=== PATIENT | female | born 1950 | race Two or more races ===

== ENCOUNTER 2020-03-14 08:56 | Outpatient (REF) | payer MEDICARE, MEDICAID, SELFPAY ==
--- NOTE | 2020-03-14 09:00 | US_ITS ---
EXAMINATION: Noninvasive assessment of the arteries of both lower extremities to include a PVR exam limited (1-2 levels) and ROSALIO, bilateral. Interventional Radiologist: Star White M.D., F.S.I.R., F.A.C.R. CLINICAL INFORMATION: This is a 69-year-old female with peripheral vascular disease. COMPARISON: Comparison is made to a previous study dated which was normal. TECHNIQUE: The ankle/brachial indices of the distal posterior tibial and the dorsalis pedis arteries were obtained of the lower extremity arterial system bilaterally; along with pressures and pulse volume recordings at the ankle FINDINGS AT REST: RIGHT LE. THE RIGHT ANKLE-BRACHIAL INDEX IS: 1.11 (higher of the DP/PT) >0.97-1.25 = normal - no significant arterial disease 0.75-0.96 = mild peripheral arterial disease 0.50-0.74 = moderate peripheral arterial disease <0.50 = severe peripheral arterial disease <0.30 = critical arterial disease 2. SEGMENTAL PRESSURES: Ankle: PT 147 DP 144 3. PVR WAVEFORMS: Ankle: Normal LEFT LE. THE LEFT ANKLE-BRACHIAL INDEX IS: 1.02 (higher of the DP/PT) >0.97-1.25 = normal - no significant arterial disease 0.75-0.96 = mild peripheral arterial disease 0.50-0.74 = moderate peripheral arterial disease <0.50 = severe peripheral arterial disease <0.30 = critical arterial disease 2. SEGMENTAL PRESSURES: Ankle: PT 136 DP 135 3. PVR WAVEFORMS: Ankle: Normal US/US ROSALIO complete IMPRESSION: 1. Normal bilateral resting peripheral arterial testing without evidence of hemodynamically significant stenosis.
== END 2020-03-14 08:57 | disposition home or self-care (01) ==
LOC: HO.US 08:56
PROVIDERS: PCP Internal Medicine; Visit Provider Internal Medicine
DX: I73.9 Peripheral vascular disease, unspecified (principal)
CPT/HCPCS: 93923

== ENCOUNTER 2020-04-27 08:27 | Outpatient (REF) | payer MEDICARE, MEDICAID, SELFPAY ==
[2020-04-27 11:37] LABS: Estimated Average Glucose 126 mg/dL
[2020-04-27 12:09] LABS: Alanine Aminotransferase 31 U/L (0-31); Albumin Level 4.6 g/dL (3.5-5.0); Alkaline Phosphatase 73 U/L (39-117); Anion Gap 15 (12-20); Aspartate Amino Transferase 27 U/L (5-31); Bilirubin Total 0.4 mg/dL (0.0-1.0); Blood Urea Nitrogen 19 mg/dL (9-16); Carbon Dioxide 29 mmol/L (22-29); Chloride 104 mmol/L (96-108); Cholesterol 282 mg/dL; Estimated Glomerular Filt Rate > 60; Glucose Fasting 105 mg/dL (60-99); HDL Cholesterol 57 mg/dL; LDL Cholesterol Calculated 180 mg/dl; Sodium 144 mmol/L (135-145); Total Protein 7.7 g/dL (6.5-8.0); Triglycerides 229 mg/dL
[2020-04-27 12:12] LABS: Thyroid Stimulating Hormone 1.86 uIU/mL (0.32-4.0)
[2020-04-27 12:15] LABS: Creatinine Urine 7.36 mg/dL; Microalbum/Creatinine Ratio Ur 108.6 ug/mg cr
== END 2020-04-27 08:28 | disposition home or self-care (01) ==
LOC: HO.HMGCLDS 08:27
PROVIDERS: PCP Internal Medicine; Visit Provider Internal Medicine
DX: E78.5 Hyperlipidemia, unspecified (principal); E11.9 Type 2 diabetes mellitus without complications
CPT/HCPCS: 36415; 80053; 80061; 82043; 83036; 84443

== ENCOUNTER 2020-08-16 08:27 | Outpatient (REF) | payer MEDICARE, MEDICAID, SELFPAY ==
[2020-08-16 12:00] LABS: Estimated Average Glucose 128 mg/dL; Hemoglobin A1c % 6.1 %
[2020-08-16 12:12] LABS: Alanine Aminotransferase 32 U/L (0-31); Albumin Level 4.3 g/dL (3.5-5.0); Alkaline Phosphatase 66 U/L (39-117); Anion Gap 14 (12-20); Aspartate Amino Transferase 25 U/L (5-31); Bilirubin Total 0.5 mg/dL (0.0-1.0); Blood Urea Nitrogen 18 mg/dL (9-16); Carbon Dioxide 29 mmol/L (22-29); Chloride 103 mmol/L (96-108); Cholesterol 212 mg/dL; Estimated Glomerular Filt Rate > 60; Glucose Fasting 111 mg/dL (60-99); HDL Cholesterol 53 mg/dL; LDL Cholesterol Calculated 96 mg/dl; Potassium 4.7 mmol/L (3.3-5.1); Sodium 141 mmol/L (135-145); Total Protein 7.1 g/dL (6.5-8.0); Triglycerides 317 mg/dL
[2020-08-16 12:22] LABS: TSH reflex Free T4 1.54 uIU/mL (0.32-4.0)
[2020-08-16 19:01] LABS: Creatinine Urine 39.99 mg/dL; Microalbum/Creatinine Ratio Ur 37.5 ug/mg cr
== END 2020-08-16 08:28 | disposition home or self-care (01) ==
LOC: HO.HMGCLDS 08:27
PROVIDERS: PCP Internal Medicine; Visit Provider Internal Medicine
DX: E11.9 Type 2 diabetes mellitus without complications (principal); E78.5 Hyperlipidemia, unspecified; I10 Essential (primary) hypertension
CPT/HCPCS: 36415; 80053; 80061; 82043; 83036; 84443

== ENCOUNTER 2020-11-15 08:20 | Outpatient (REF) | payer MEDICARE, MEDICAID, SELFPAY ==
[2020-11-15 11:39] LABS: Hematocrit 39.3 % (37-47); Hemoglobin 12.6 g/dl (12.0-16.0); Mean Corpuscular HGB Conc 32.1 g/dl (31.0-35.0); Mean Corpuscular Hemoglobin 27.6 pg (27.0-33.0); Platelet Count 288 X10*3/uL (160-400); Red Blood Count 4.57 X10*6/uL (4.20-5.50); Red Cell Distribution Width 13.4 % (11.0-16.0); White Blood Count 5.9 X10*3/uL (4.8-10.8)
[2020-11-15 11:49] LABS: Alanine Aminotransferase 29 U/L (0-31); Albumin Level 4.3 g/dL (3.5-5.0); Alkaline Phosphatase 63 U/L (39-117); Anion Gap 11 (12-20); Aspartate Amino Transferase 24 U/L (5-31); Bilirubin Total 0.4 mg/dL (0.0-1.0); Blood Urea Nitrogen 16 mg/dL (9-16); Calcium 9.9 mg/dL (8.4-10.2); Carbon Dioxide 31 mmol/L (22-29); Chloride 102 mmol/L (96-108); Cholesterol 209 mg/dL; Estimated Glomerular Filt Rate > 60; Glucose Fasting 104 mg/dL (60-99); HDL Cholesterol 53 mg/dL; LDL Cholesterol Calculated 119 mg/dl; Potassium 4.6 mmol/L (3.3-5.1); Sodium 139 mmol/L (135-145); Total Protein 7.2 g/dL (6.5-8.0); Triglycerides 185 mg/dL
[2020-11-15 12:01] LABS: Creatinine Urine 48.11 mg/dL; Microalbum/Creatinine Ratio Ur 49.8 ug/mg cr
[2020-11-15 12:05] LABS: Estimated Average Glucose 117 mg/dL; Hemoglobin A1c % 5.7 %
== END 2020-11-15 08:21 | disposition home or self-care (01) ==
LOC: HO.HMGCLDS 08:20
PROVIDERS: PCP Internal Medicine; Visit Provider Internal Medicine
DX: E11.9 Type 2 diabetes mellitus without complications (principal); E78.5 Hyperlipidemia, unspecified; I10 Essential (primary) hypertension
CPT/HCPCS: 36415; 80053; 80061; 82043; 83036; 85027

== ENCOUNTER 2020-11-23 09:24 | Outpatient (REF) | payer MEDICARE, MEDICAID, SELFPAY ==
--- NOTE | ~2020-11-23 | XR_ITS ---
EXAMINATION: XR FOOT, RIGHT XR FOOT, LEFT CLINICAL INFORMATION: Pain. COMPARISON: None TECHNIQUE: AP, oblique, and lateral views of the right and left foot. FINDINGS: RIGHT FOOT: No acute fracture or dislocation. Mild tibiotalar joint space narrowing with small marginal osteophytes. Joint space narrowing with small marginal osteophytes at the 1st metatarsophalangeal joint and hallux sesamoids. Plantar and dorsal calcaneal enthesophytes. No osseous erosion. LEFT FOOT: Partially visualized left ankle arthroplasty. No acute hardware fracture. No perihardware lucency to suggest loosening or infection. Joint space narrowing with marginal osteophytes and subchondral sclerosis at the talonavicular and cuneonavicular joints. Joint space narrowing with marginal osteophytes at the 1st metatarsophalangeal joint and hallux sesamoids. Plantar and dorsal calcaneal spurs. No acute fracture or dislocation. XR/XR foot LT min 3V IMPRESSION: RIGHT FOOT: Mild tibiotalar, 1st metatarsophalangeal, and hallux sesamoid osteoarthritis. Plantar and dorsal calcaneal spurs. LEFT FOOT: Ankle arthroplasty without evidence of complication. Dorsal midfoot, 1st metatarsophalangeal, and hallux sesamoid osteoarthritis. Plantar and dorsal calcaneal spurs.
--- NOTE | ~2020-11-23 | XR_ITS ---
EXAMINATION: XR FOOT, RIGHT XR FOOT, LEFT CLINICAL INFORMATION: Pain. COMPARISON: None TECHNIQUE: AP, oblique, and lateral views of the right and left foot. FINDINGS: RIGHT FOOT: No acute fracture or dislocation. Mild tibiotalar joint space narrowing with small marginal osteophytes. Joint space narrowing with small marginal osteophytes at the 1st metatarsophalangeal joint and hallux sesamoids. Plantar and dorsal calcaneal enthesophytes. No osseous erosion. LEFT FOOT: Partially visualized left ankle arthroplasty. No acute hardware fracture. No perihardware lucency to suggest loosening or infection. Joint space narrowing with marginal osteophytes and subchondral sclerosis at the talonavicular and cuneonavicular joints. Joint space narrowing with marginal osteophytes at the 1st metatarsophalangeal joint and hallux sesamoids. Plantar and dorsal calcaneal spurs. No acute fracture or dislocation. XR/XR foot RT min 3V IMPRESSION: RIGHT FOOT: Mild tibiotalar, 1st metatarsophalangeal, and hallux sesamoid osteoarthritis. Plantar and dorsal calcaneal spurs. LEFT FOOT: Ankle arthroplasty without evidence of complication. Dorsal midfoot, 1st metatarsophalangeal, and hallux sesamoid osteoarthritis. Plantar and dorsal calcaneal spurs.
== END 2020-11-23 09:25 | disposition home or self-care (01) ==
LOC: HO.HMGCX 09:24
PROVIDERS: PCP Internal Medicine; Visit Provider Internal Medicine
DX: Z13.89 Encounter for screening for other disorder (principal)
CPT/HCPCS: 73630

== ENCOUNTER 2020-11-23 09:40 | Outpatient (REF) | payer MEDICARE, MEDICAID, SELFPAY ==
[2020-11-28 23:45] LABS: HPV mRNA E6/E7 Not Detected (Not Detected)
== END 2020-11-23 09:41 | disposition home or self-care (01) ==
LOC: HO.LAB 09:40
PROVIDERS: Visit Provider Internal Medicine
DX: Z12.4 Encounter for screening for malignant neoplasm of cervix (principal); Z11.51 Encounter for screening for human papillomavirus (HPV)
CPT/HCPCS: 87624; 88142

== ENCOUNTER 2021-02-27 08:24 | Outpatient (REF) | payer MEDICARE, MEDICAID, SELFPAY ==
[2021-02-27 12:02] LABS: Alanine Aminotransferase 54 U/L (0-31); Albumin Level 4.5 g/dL (3.5-5.0); Alkaline Phosphatase 63 U/L (39-117); Anion Gap 15 (12-20); Aspartate Amino Transferase 52 U/L (5-31); Bilirubin Total 0.5 mg/dL (0.0-1.0); Blood Urea Nitrogen 15 mg/dL (9-16); Calcium 10.1 mg/dL (8.4-10.2); Carbon Dioxide 25 mmol/L (22-29); Chloride 105 mmol/L (96-108); Cholesterol 213 mg/dL; Estimated Glomerular Filt Rate > 60; Glucose Fasting 108 mg/dL (60-99); HDL Cholesterol 54 mg/dL; LDL Cholesterol Calculated 125 mg/dl; Potassium 4.1 mmol/L (3.3-5.1); Sodium 141 mmol/L (135-145); Total Protein 7.4 g/dL (6.5-8.0); Triglycerides 173 mg/dL
[2021-02-27 12:12] LABS: Estimated Average Glucose 137 mg/dL; Hemoglobin A1c % 6.4 %
[2021-02-27 12:25] LABS: Creatinine Urine 15.72 mg/dL; Microalbumin Urine < 5.0 mg/L
== END 2021-02-27 08:25 | disposition home or self-care (01) ==
LOC: HO.HMGCLDS 08:24
PROVIDERS: PCP Internal Medicine; Visit Provider Internal Medicine
DX: E11.9 Type 2 diabetes mellitus without complications (principal); E78.5 Hyperlipidemia, unspecified; I10 Essential (primary) hypertension
CPT/HCPCS: 36415; 80053; 80061; 82043; 83036

== ENCOUNTER 2021-07-30 10:27 | Inpatient (IN) | payer MEDICARE, MEDICAID, SELFPAY ==
[2021-07-30] VITALS (10 sets, daily range): BP systolic 118–166; BP diastolic 47–94; PULSE 67–109; RESP 16–24; TEMP 36.6–36.8; O2SAT 93–98; BMI 28.3
--- NOTE | ~2021-07-30 | XR_ITS ---
EXAMINATION: XR CHEST CLINICAL INFORMATION: Covid positive COMPARISON: None TECHNIQUE: Frontal view of the chest was obtained. FINDINGS: No significant abnormality is noted involving the heart, lungs, mediastinum, bony thorax or soft tissues. Heart size upper limits of normal. Degenerative changes are present in the spine. XR/XR chest 1V IMPRESSION: No acute intrathoracic disease. No evidence of Covid pneumonia.
[2021-07-30 12:00] LABS: MANUAL DIFF FLAG NO
[2021-07-30 12:03] LABS: Basophils Percent Auto 0.2 % (0-2); Hematocrit 40.5 % (37.0-47.0); Hemoglobin 14.7 g/dl (12.0-16.0); Imm Gran Abs Auto 0.03 X10*3/uL (0.00-0.03); Imm Gran Pct Auto 0.7 % (0.0-0.4); Lymphocytes Absolute Auto 1.5 X10*3/uL (1.2-4.9); Lymphocytes Percent Auto 36.3 % (20-40); Mean Corpuscular HGB Conc 36.3 g/dl (31.0-35.0); Mean Corpuscular Hemoglobin 27.9 pg (27.0-33.0); Mean Platelet Volume 8.9 fL (9.4-12.3); Monocytes Absolute Auto 0.6 X10*3/uL (0.1-1.2); Monocytes Percent Auto 13.7 % (2-11); Neutrophils Percent Auto 49.1 % (45-73); Platelet Count 251 X10*3/uL (160-400); Red Blood Count 5.26 X10*6/uL (4.20-5.50); Red Cell Distribution Width 12.2 % (11.0-16.0); White Blood Count 4.1 X10*3/uL (4.8-10.8)
[2021-07-30 12:28] LABS: Blood Urea Nitrogen 14 mg/dL (9-16); Creatinine Clr Calc Pharmacy 65.5; Estimated Glomerular Filt Rate > 60; Glucose Random 125 mg/dL (60-115)
[2021-07-30 12:42] LABS: Anion Gap 17 (12-20); Carbon Dioxide 23 mmol/L (22-29); Chloride 81 mmol/L (96-108); Potassium 4.4 mmol/L (3.3-5.1); Sodium 117 mmol/L (135-145)
--- NOTE | 2021-07-30 14:41 | ECG_ITS ---
Test Reason : NAUSEA/VOMITING Blood Pressure : / mmHG Vent. Rate : 072 BPM Atrial Rate : 072 BPM P-R Int : 190 ms QRS Dur : 102 ms QT Int : 436 ms P-R-T Axes : 053 053 088 degrees QTc Int : 477 ms Normal sinus rhythm Normal ECG No previous ECGs available Referred By: Ana Nowak Electronically Signed By:BLANKA MCCONNELL
--- NOTE | 2021-07-30 14:50 | ED_ITS ---
HPI - Nausea/Vomiting/Diarrhea General Chief complaint: Nausea/Vomiting/Diarrhea Stated complaint: covid+, vomiting, diarrhea, weak Time Seen by Provider: 07/30/21 14:40 Source: patient and family Mode of arrival: ambulatory Limitations: no limitations History of Present Illness HPI Narrative: Patient comes to the emergency room accompanied by her son. 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 For 5 days, patient has been complaining of nausea, vomiting and diarrhea. Patient tested positive for COVID 5 days ago as well. Patient has been feeling very weak. Yesterday patient started trying to drink Pedialyte, but every time she tries to drink something she vomits. Patient also complaining of burning sensation in her chest. Patient has no respiratory distress, occasional cough, no shortness of breath, no lower extremity pain. Related Data Home Medications Medication Instructions Recorded Confirmed ascorbic acid (vitamin C) 500 mg 500 mg PO DAILY 07/30/21 07/30/21 tablet (Vitamin C) cholecalciferol (vitamin D3) 25 25 mcg PO DAILY 07/30/21 07/30/21 mcg (1,000 unit) tablet (Vitamin D3) olopatadine 0.1 % eye drops 1 drp OPHTHALMIC (EYE) BID PRN 07/30/21 07/30/21 omeprazole 20 mg capsule,delayed 1 cap PO DAILY PRN 07/30/21 07/30/21 release Previous Rx's Medication Instructions Recorded compr.stocking,thigh,reg,large #2 ea 06/23/20 quinidine sulfate 200 mg tablet 200 mg PO .qhs #30 tab 08/23/20 metformin 500 mg tablet 1,000 mg PO DAILY #180 tab 10/17/20 gabapentin 600 mg tablet 600 mg PO BID #180 tab 11/23/20 losartan 100 mg tablet 100 mg PO DAILY #90 tab 01/12/21 nifedipine 30 mg tablet,extended 30 mg PO DAILY #90 tab 01/18/21 release fenofibrate 160 mg tablet 160 mg PO DAILY #90 tab 02/14/21 triamterene 37.5 1 cap PO DAILY #90 cap 05/04/21 mg-hydrochlorothiazide 25 mg capsule ezetimibe 10 mg tablet 10 mg PO DAILY #90 tab 05/22/21 blood sugar diagnostic #100 ea 06/04/21 nirmatrelvir 300 mg (150 mg x See Rx Instructions PO .COMPLEX 07/27/21 2)-ritonavir 100 mg tablet (EUA) #30 tab (Paxlovid 300 mg () Allergies Allergy/AdvReac Type Severity Reaction Status Date / Time atorvastatin Allergy Unknown myalgia Verified 07/30/21 11:48 penicillin G Allergy Unknown unknown Verified 07/30/21 11:48 penicillin V Allergy Unknown unknown Verified 07/30/21 11:48 Penicillins Allergy Unknown unknown Verified 07/30/21 11:48 rosuvastatin [Crestor] Allergy Unknown myalgia Verified 07/30/21 11:48 Review of Systems Review of Systems: Constitutional : No Weight loss, No Fever, No Chills, No Night Sweats, complaining of fatigue and generalized malaise ENT/Mouth : No Hearing loss, No Ear Pain, No Nasal Congestion, No Sinus Pain, No Hoarseness, No sore throat, No Rhinorrhea, No Swallowing Difficulty Eyes: No Eye Pain, No Swelling, No Redness, No Foreign Body, No Discharge, No Vision Changes Cardiovascular : No Chest Pain, No SOB, No Dyspnea on Exertion, No Orthopnea, No Edema, No Palpitations Respiratory : No Cough, No Sputum, No Wheezing, No Smoke Exposure, No Dyspnea Gastrointestinal : Complaining of nausea, vomiting, diarrhea, abdominal cramping, no melena Genitourinary : no irregular bleeding, No Dysuria, No Urinary Frequency, No Hematuria, No Urinary Incontinence, No Urgency, No Flank Pain, No Urinary Flow Changes, No Hesitancy Musculoskeletal : No joint pain, complaining of Myalgias, No Joint Swelling Skin : No Skin Lesions, No rash Neuro : No Weakness, No Numbness, No Paresthesias, No Loss of Consciousness, No Dizziness, No Headache Psych : No Anxiety/Panic, No Depression, No SI/HI/AH/VH, No Social Issues, Heme/Lymph: No Bruising, No Bleeding,No Lymphadenopathy Endocrine : No Polyuria, No Polydipsia, No Temperature Intolerance [facility] Past Medical History Medical History Annual physical exam Claudication DJD (degenerative joint disease), cervical Foot pain, bilateral H. pylori infection Hip pain, right HTN (hypertension) Hx of bone density study Hyperlipidemia Lower back pain Osteoarthritis Osteopenia Shoulder pain, bilateral Shoulder pain, left Type 2 diabetes mellitus Surgical History H/O colonoscopy Social History Social History Housing: House Alcohol intake: never Patient Tobacco Use Status: Never used Tobacco e-Cigarette/Vaping Use: Never Used Advance Directives: No Advance Directives Information Provided: No Current occupational status: retired Physical Exam Vital Signs: Vital Signs: Last Vital Signs Temp 97.9 F 07/30/21 17:44 Pulse 67 07/30/21 17:44 Resp 16 07/30/21 17:44 BP 141/63 H 07/30/21 17:44 Pulse Ox 98 07/30/21 17:44 BMI result Body Mass Index 28.3 Const: Other: Appearance: Alert. Oriented X3. No acute distress. Seems weak Eyes: Pupils equal, round and reactive to light. ENT: Pharynx normal. Neck: Normal inspection. Neck supple. No lymph nodes noted. No crepitus CVS: Normal heart rate and rhythm. Pulses normal. Normal S1 and S2 Respiratory: No respiratory distress. Breath sounds normal. No Wheezing. No rales Abdomen: Soft and nontender. No rigidity. No distention. Skin: Skin warm and dry. Normal skin color. Normal skin turgor. Extremities: No lower extremity edema. No Lacerations. No Rash Neuro: Oriented X 3. No motor deficit. No sensory deficit. Moving all extremities. No slurred speech. CN 2 through 12 grossly intact Psych: calm, cooperative, normal affect Course Course Course Narrative: While patient was in the waiting room, labs were obtained. Patient's sodium is 117. I discussed with the patient and her son the patient will be admitted. Patient will be receiving IV fluids, some of the labs are still pending. After 1 L of fluids, patient's sodium actually decreased to 116. Sodium osmolality is pending. Another L of fluid will be given. It is likely that the mechanism of hyponatremia is dehydration. I discussed the patient with Dr. Herrera, patient will be admitted to the ICU MDM - Nausea/Vomiting/Diarrhea Lab Data Result diagrams: 07/30/21 11:56 07/30/21 17:10 Labs: Lab Results 07/30/21 07/30/21 07/30/21 Range/Units 11:56 11:56 15:07 WBC 4.1 L (4.8-10.8) X10*3/uL RBC 5.26 (4.20-5.50) X10*6/uL Hgb 14.7 (12.0-16.0) g/dl Hct 40.5 (37.0-47.0) % MCV 77.0 L (80.0-98.0) fL MCH 27.9 (27.0-33.0) pg MCHC 36.3 H (31.0-35.0) g/dl RDW 12.2 (11.0-16.0) % Plt Count 251 (160-400) X10*3/uL MPV 8.9 L (9.4-12.3) fL Immature Gran % (Auto) 0.7 H (0.0-0.4) % Neut % (Auto) 49.1 (45-73) % Lymph % (Auto) 36.3 (20-40) % [place] % (Auto) 13.7 H (2-11) % Eos % (Auto) 0.0 (0-4) % Baso % (Auto) 0.2 (0-2) % Lymph # (Auto) 1.5 (1.2-4.9) X10*3/uL [place] # (Auto) 0.6 (0.1-1.2) X10*3/uL Eos # (Auto) 0.0 (0.0-0.4) X10*3/uL Baso # (Auto) 0.0 (0.0-0.2) X10*3/uL Abs Immat Gran (auto) 0.03 (0.00-0.03) X10*3/uL Absolute Neuts (auto) 2.0 (2.0-8.3) x10*3/uL Absolute Nucleated RBC 0.000 (0.0-0.012) X10*3/uL Nucleated RBC % (auto) 0.0 (0.0-0.2) /100WBC Sodium 117 L* (135-145) mmol/L Potassium 4.4 (3.3-5.1) mmol/L Chloride 81 L D (96-108) mmol/L Carbon Dioxide 23 (22-29) mmol/L Anion Gap 17 (12-20) BUN 14 (9-16) mg/dL Creatinine 0.82 (0.5-1.4) mg/dL Estim Creat Clear Calc 65.5 Estimated GFR > 60 Random Glucose 125 H (60-115) mg/dL Calcium 10.0 (8.4-10.2) mg/dL Magnesium 1.4 L* (1.6-2.6) mg/dL Total Bilirubin 0.7 (0.0-1.0) mg/dL Direct Bilirubin 0.3 (0.0-0.5) mg/dL AST 41 H (5-31) U/L ALT 60 H (0-31) U/L Alkaline Phosphatase 66 (39-117) U/L Troponin I High Sens (<3.5-17.0) ng/L Total Protein 7.3 (6.5-8.0) g/dL Albumin 4.4 (3.5-5.0) g/dL COVID-19 ([facility]ACHELLE) (Negative) COVID-19 Clin Com 07/30/21 07/30/21 07/30/21 Range/Units 15:07 15:07 17:10 WBC (4.8-10.8) X10*3/uL RBC (4.20-5.50) X10*6/uL Hgb (12.0-16.0) g/dl Hct (37.0-47.0) % MCV (80.0-98.0) fL MCH (27.0-33.0) pg MCHC (31.0-35.0) g/dl RDW (11.0-16.0) % Plt Count (160-400) X10*3/uL MPV (9.4-12.3) fL Immature Gran % (Auto) (0.0-0.4) % Neut % (Auto) (45-73) % Lymph % (Auto) (20-40) % [place] % (Auto) (2-11) % Eos % (Auto) (0-4) % Baso % (Auto) (0-2) % Lymph # (Auto) (1.2-4.9) X10*3/uL [place] # (Auto) (0.1-1.2) X10*3/uL Eos # (Auto) (0.0-0.4) X10*3/uL Baso # (Auto) (0.0-0.2) X10*3/uL Abs Immat Gran (auto) (0.00-0.03) X10*3/uL Absolute Neuts (auto) (2.0-8.3) x10*3/uL Absolute Nucleated RBC (0.0-0.012) X10*3/uL Nucleated RBC % (auto) (0.0-0.2) /100WBC Sodium 116 L* (135-145) mmol/L Potassium 4.0 (3.3-5.1) mmol/L Chloride 84 L (96-108) mmol/L Carbon Dioxide 20 L (22-29) mmol/L Anion Gap 16 (12-20) BUN 12 (9-16) mg/dL Creatinine 0.72 (0.5-1.4) mg/dL Estim Creat Clear Calc 74.6 Estimated GFR > 60 Random Glucose 116 H (60-115) mg/dL Calcium 9.3 D (8.4-10.2) mg/dL Magnesium (1.6-2.6) mg/dL Total Bilirubin (0.0-1.0) mg/dL Direct Bilirubin (0.0-0.5) mg/dL AST (5-31) U/L ALT (0-31) U/L Alkaline Phosphatase (39-117) U/L Troponin I High Sens 3.8 (<3.5-17.0) ng/L Total Protein (6.5-8.0) g/dL Albumin (3.5-5.0) g/dL COVID-19 ([facility]ACHELLE) Positive A (Negative) COVID-19 Clin Com See Note Critical Care Time Critical Care Time Critical Care Time: Yes Total Critical Care Time: 50 Attestation: I have personally provided critical care time. Time includes review of lab data, radiology results, discussion with consultants, and monitoring for potential decompensation. Intervention performed as documented. Discharge Plan Discharge Clinical Impression: Acute hyponatremia, COVID-19, Nausea vomiting and diarrhea Patient Disposition: Admitted As Inpatient Prescriptions: No Action (DME) compr.stocking,thigh,reg,large Misc See Rx Instructions .ROUTE .MEDSUPPLY Qty: 2 0RF Rx Instructions: 15-20 mmHg quinidine sulfate 200 mg tablet 200 mg PO .qhs Qty: 30 3RF metformin 500 mg tablet 1,000 mg PO DAILY Qty: 180 3RF losartan 100 mg tablet 100 mg PO DAILY Qty: 90 3RF nifedipine 30 mg tablet extended release 30 mg PO DAILY Qty: 90 3RF fenofibrate 160 mg tablet 160 mg PO DAILY Qty: 90 3RF triamterene-hydrochlorothiazid 37.5-25 mg capsule 1 cap PO DAILY Qty: 90 3RF ezetimibe 10 mg tablet 10 mg PO DAILY Qty: 90 3RF (DME) blood sugar diagnostic Strip See Rx Instructions .ROUTE .MEDSUPPLY Qty: 100 3RF Rx Instructions: ONE TOUCH ULTRA BLUE TEST STRIPS (new) 100 USE TWICE A DAY TO TEST BLOOD SUGARS. Paxlovid (EUA) 150 mg x 2- 100 mg tablet See Rx Instructions PO .COMPLEX Qty: 30 0RF Rx Instructions: take TWO 150 mg tablets of nirmatrelvir with ONE 100 mg tablet of ritonavir twice daily for 5 days PO ascorbic acid (vitamin C) [Vitamin C] 500 mg Tablet 500 mg PO DAILY 0RF omeprazole 20 mg capsule,delayed release(DR/EC) 1 cap PO DAILY PRN (Reason: Acid Reflux) 0RF cholecalciferol (vitamin D3) [Vitamin D3] 25 mcg (1,000 unit) Tablet 25 mcg PO DAILY 0RF olopatadine 0.1 % drops 1 drp ophthalmic (eye) BID PRN (Reason: Allergy Symptoms) 0RF Rx Instructions: separate doses by at least 6-8 hours gabapentin 600 mg tablet 600 mg PO BID Qty: 180 3RF
[2021-07-30 15:20] LABS: COVID-19 Test Positive (Negative)
[2021-07-30 15:33] LABS: Troponin-I High Sensitivity 3.8 ng/L (<3.5-17.0)
[2021-07-30 15:45] LABS: Magnesium 1.4 mg/dL (1.6-2.6)
[2021-07-30 15:46] LABS: Alanine Aminotransferase 60 U/L (0-31); Albumin Level 4.4 g/dL (3.5-5.0); Alkaline Phosphatase 66 U/L (39-117); Aspartate Amino Transferase 41 U/L (5-31); Bilirubin Direct 0.3 mg/dL (0.0-0.5); Bilirubin Total 0.7 mg/dL (0.0-1.0); Total Protein 7.3 g/dL (6.5-8.0)
[2021-07-30] MEDS: Lidocaine HCl Viscous 2 % 15 ML SOLUTION MUCOUS MEM (16:25)
[2021-07-30] MEDS: Magnesium Hydrox/Alum Hydrox 30 ML ORAL.SUSP PO (16:26)
[2021-07-30] MEDS: 0.9 % Sodium Chloride 1,000 ML 999 ML IVCONT (16:26)
[2021-07-30] MEDS: Loperamide HCl 2 MG CAPSULE 4 MG PO (16:27)
[2021-07-30] MEDS: ondansetron HCL 4 MG/2 ML VIAL IVPUSH (16:30)
[2021-07-30 17:43] LABS: Anion Gap 16 (12-20); Blood Urea Nitrogen 12 mg/dL (9-16); Calcium 9.3 mg/dL (8.4-10.2); Carbon Dioxide 20 mmol/L (22-29); Chloride 84 mmol/L (96-108); Creatinine Clr Calc Pharmacy 74.6; Estimated Glomerular Filt Rate > 60; Glucose Random 116 mg/dL (60-115); Sodium 116 mmol/L (135-145)
[2021-07-30 17:51] LABS: Appearance Urine CLEAR; Color Urine YELLOW; Glucose Urine UA NEG (NEG); Leukocyte Esterase Urine NEG (NEG); Nitrite Urine NEG (NEG); Specific Gravity - Urine 1.015 (1.005-1.025); UACC Culture Trigger NO; Urine Blood 1+ (NEG); Urine Ketones NEG (NEG); Urine Protein 2+ MG/DL (NEG-TRACE)
[2021-07-30 18:09] LABS: Osmolality Urine 253 mosm/kg (373-1093)
[2021-07-30 18:12] LABS: RBC Urine 0-2 /HPF (0); Renal Epithelial Cells Urine 1+ /LPF; WBC Urine 0-2 /HPF (0-4)
[2021-07-30] MEDS: Magnesium Sulfate/H2O 2 GM/50 ML PIGGYBACK IV (18:24)
--- NOTE | 2021-07-30 18:31 | PHA.MEDREC ---
Pharmacy Consult ? Medication Reconciliation Pharmacy has completed the medication reconciliation. Spoke with patients son who translated for patient. DC'ed quinidine and triamterene/hctz as patient states she is no longer taking those medications. Patient states she is only on 2 blood pressure medications ( nifedipine and losartan). Patients son is bringing in the paxclovid.
--- NOTE | 2021-07-30 20:05 | PC.NURSE ---
Addendum entered by Thi Mac 07/31/21 01:24: report given to ZOE Rizvi Original Note: report received from ZOE Zapata. pt is alert and oriented. resting in bed. no signs of acute distress notice. breathing equally unlabored
[2021-07-30 20:52] LABS: Anion Gap 14 (12-20); Blood Urea Nitrogen 11 mg/dL (9-16); Calcium 9.5 mg/dL (8.4-10.2); Carbon Dioxide 25 mmol/L (22-29); Chloride 85 mmol/L (96-108); Creatinine Clr Calc Pharmacy 71.7; Estimated Glomerular Filt Rate > 60; Glucose Random 122 mg/dL (60-115); Magnesium 2.2 mg/dL (1.6-2.6); Potassium 3.5 mmol/L (3.3-5.1); Sodium 120 mmol/L (135-145)
--- NOTE | 2021-07-30 21:09 | P.HPCC_ITS ---
History of Present Illness Date of Service: 07/30/21 Attending physician on admission: Ирина Herrera Chief Complaint: hyponatremia Patient is a Welsh speaking 70-year-old female who came to the emergency department with her son who interpreted for her, complaining of 5 days of nausea, vomiting, diarrhea and fatigue. Her son states she test positive for COVID 5 days ago in the patient's PCP started her on Paxlovid 3 days ago. She has been taking the Paxlovid but did not take her dose this morning. Her son also told the emergency department that patient is not vaccinated for COVID. In the emergency department, the patient's vital signs were stable except for slight hypertension ranging from 158/70 to 141/63. Patient's labs revealed hyponatremia with a sodium of 117, potassium 4.4, chloride 81, bicarb 23, glucose 125 and Mag 1.4 and Covid +. Urine osmolality was low at 253, likely secondary to hypovolemia, urine sodium 62. Patient was given 2 g of magnesium and 1L NS, repeat labs showed sodium down to 116, potassium 4.0, chloride 84, bicarb 20. Patient was given 1 more L of normal saline and repeat labs showed patient's sodium is up to 120, potassium 3.5, chloride 85, bicarb 25 and magnesium 2.2. During my physical exam, the patient was able to express she was feeling much better, she was sitting up in bed. Her VSS and PE was unremarkable. Her son brought in the Paxlovid and I watched her take her evening dose, this would be day 4 evening dose. She did not take the day 4 morning dose. I communicated with the pharmacy to let them know, they will go to the patient's room in the ED and put a prescription label on the medication and secure the med. Tobacco Checkout Clerk refused admission therefore, after speaking with Dr. Herrera, we will admit the patient to the ICU. Will start maintenance drip of NS and repeat labs in 3 hours. Review of Systems Review of Systems: Yes all other systems are reviewed and are negative PMFSH Past Medical History Medical History Annual physical exam Claudication DJD (degenerative joint disease), cervical Foot pain, bilateral H. pylori infection Hip pain, right HTN (hypertension) Hx of bone density study Hyperlipidemia Lower back pain Osteoarthritis Osteopenia Shoulder pain, bilateral Shoulder pain, left Type 2 diabetes mellitus Surgical History Surgical History H/O colonoscopy Social History Social History Housing: House Alcohol intake: never Patient Tobacco Use Status: Never used Tobacco e-Cigarette/Vaping Use: Never Used Advance Directives: No Advance Directives Information Provided: No Current occupational status: retired Meds Allergies Allergy/AdvReac Type Severity Reaction Status Date / Time atorvastatin Allergy Unknown myalgia Verified 07/30/21 11:48 penicillin G Allergy Unknown unknown Verified 07/30/21 11:48 penicillin V Allergy Unknown unknown Verified 07/30/21 11:48 Penicillins Allergy Unknown unknown Verified 07/30/21 11:48 rosuvastatin [Crestor] Allergy Unknown myalgia Verified 07/30/21 11:48 Active Medications: Current Medications Heparin Sodium (Porcine) (Heparin Sodium,Porcine 5,000 Unit/Ml Vial) 5,000 unit SUBCUT Q12H [facility] Potassium Chloride/Sodium Chloride () 20 meq in 1,000 mls @ 100 mls/hr IVCONT .Q10H [facility] Patient Own Medication (Paxlovid Tablets) 1 each PO BID [facility] Stop: 08/01/21 09:01 Pharmacy Consult (Consult Rx Perform Med Rec) 1 each MISCELLANE ONCE PRN PRN Reason: Consult order Home Medications Medication Instructions Recorded Confirmed Last Taken Type ascorbic acid (vitamin C) 500 mg 500 mg PO DAILY 07/30/21 07/30/21 07/29/21 Hi story tablet (Vitamin C) cholecalciferol (vitamin D3) 25 25 mcg PO DAILY 07/30/21 07/30/21 07/29/21 History mcg (1,000 unit) tablet (Vitamin D3) olopatadine 0.1 % eye drops 1 drp OPHTHALMIC (EYE) BID PRN 07/30/21 07/30/21 Unknown History omeprazole 20 mg capsule,delayed 1 cap PO DAILY PRN 07/30/21 07/30/21 Unknown History release Physical Exam Vital Signs: Vital Signs: Last Vital Signs Temp 98.3 F 07/30/21 20:26 Pulse 75 07/30/21 20:26 Resp 18 07/30/21 21:00 BP 118/55 L 07/30/21 20:26 Pulse Ox 98 07/30/21 21:00 BMI result Body Mass Index 28.3 Const: General: cooperative, healthy appearing, comfortable, no acute distress and well developed Orientation/consciousness: patient oriented x3 Limitations: no limitations HEENT: Head: Yes normal to inspection General nose exam: Normal external nose present Face and sinus: Yes normal facial exam Eyes: General: appearance normal, both eyes and all related structures Neck: Neck: Yes normal visual inspection, Yes full ROM and Yes no lymphadenopathy Resp: Effort & Inspection: normal respiratory effort and able to speak in complete sentences Auscultation: clear to auscultation bilaterally Cardio: Rate: regular rate Rhythm: regular rhythm Heart sounds: normal S1 and S2 Skin: General skin exam: no rashes or lesions noted Neuro: General: patient oriented x3 Extrem: General: Yes normal to inspection Results Labs CBC and Chem 7: 07/30/21 11:56 07/30/21 20:15 Labs: Laboratory Results - last 24 hr 07/30/21 07/30/21 07/30/21 11:56 11:56 15:07 MCV 77.0 L MCH 27.9 MCHC 36.3 H RDW 12.2 Plt Count 251 MPV 8.9 L Immature Gran % (Auto) 0.7 H Neut % (Auto) 49.1 Lymph % (Auto) 36.3 [place] % (Auto) 13.7 H Eos % (Auto) 0.0 Baso % (Auto) 0.2 Lymph # (Auto) 1.5 [place] # (Auto) 0.6 Eos # (Auto) 0.0 Baso # (Auto) 0.0 Abs Immat Gran (auto) 0.03 Absolute Neuts (auto) 2.0 Absolute Nucleated RBC 0.000 Nucleated RBC % (auto) 0.0 Anion Gap 17 Estim Creat Clear Calc 65.5 Estimated GFR > 60 Random Glucose 125 H Calcium 10.0 Magnesium 1.4 L* Total Bilirubin 0.7 Direct Bilirubin 0.3 AST 41 H ALT 60 H Alkaline Phosphatase 66 Troponin I High Sens Total Protein 7.3 Albumin 4.4 Urine Color Urine Appearance Urine pH Ur Specific [place] Urine Protein Urine Glucose (UA) Urine Ketones Urine Blood Urine Nitrite Ur Leukocyte Esterase Urine RBC Urine WBC Ur Squamous Epith Cells Ur Renal Epithelial Cell Urine Bacteria Urine Osmolality Ur Random Sodium COVID-19 ([facility]) COVID-19 Clin [place] 07/30/21 07/30/21 07/30/21 15:07 15:07 17:10 MCV MCH MCHC RDW Plt Count MPV Immature Gran % (Auto) Neut % (Auto) Lymph % (Auto) [place] % (Auto) Eos % (Auto) Baso % (Auto) Lymph # (Auto) [place] # (Auto) Eos # (Auto) Baso # (Auto) Abs Immat Gran (auto) Absolute Neuts (auto) Absolute Nucleated RBC Nucleated RBC % (auto) Anion Gap 16 Estim Creat Clear Calc 74.6 Estimated GFR > 60 Random Glucose 116 H Calcium 9.3 D Magnesium Total Bilirubin Direct Bilirubin AST ALT Alkaline Phosphatase Troponin I High Sens 3.8 Total Protein Albumin Urine Color Urine Appearance Urine pH Ur Specific [place] Urine Protein Urine Glucose (UA) Urine Ketones Urine Blood Urine Nitrite Ur Leukocyte Esterase Urine RBC Urine WBC Ur Squamous Epith Cells Ur Renal Epithelial Cell Urine Bacteria Urine Osmolality Ur Random Sodium COVID-19 ([facility]) Positive A COVID-19 Clin Com See Note 07/30/21 07/30/21 07/30/21 17:41 17:41 17:41 MCV MCH MCHC RDW Plt Count MPV Immature Gran % (Auto) Neut % (Auto) Lymph % (Auto) [place] % (Auto) Eos % (Auto) Baso % (Auto) Lymph # (Auto) [place] # (Auto) Eos # (Auto) Baso # (Auto) Abs Immat Gran (auto) Absolute Neuts (auto) Absolute Nucleated RBC Nucleated RBC % (auto) Anion Gap Estim Creat Clear Calc Estimated GFR Random Glucose Calcium Magnesium Total Bilirubin Direct Bilirubin AST ALT Alkaline Phosphatase Troponin I High Sens Total Protein Albumin Urine Color YELLOW Urine Appearance CLEAR Urine pH 6.0 Ur Specific [place] 1.015 Urine Protein 2+ H Urine Glucose (UA) NEG Urine Ketones NEG Urine Blood 1+ H Urine Nitrite NEG Ur Leukocyte Esterase NEG Urine RBC 0-2 Urine WBC 0-2 Ur Squamous Epith Cells NONE Ur Renal Epithelial Cell 1+ Urine Bacteria NONE Urine Osmolality 253 L Ur Random Sodium 62.0 COVID-19 ([facility]ACHELLE) COVID-19 Clin Com 07/30/21 20:15 MCV MCH MCHC RDW Plt Count MPV Immature Gran % (Auto) Neut % (Auto) Lymph % (Auto) [place] % (Auto) Eos % (Auto) Baso % (Auto) Lymph # (Auto) [place] # (Auto) Eos # (Auto) Baso # (Auto) Abs Immat Gran (auto) Absolute Neuts (auto) Absolute Nucleated RBC Nucleated RBC % (auto) Anion Gap 14 Estim Creat Clear Calc 71.7 Estimated GFR > 60 Random Glucose 122 H Calcium 9.5 Magnesium 2.2 Total Bilirubin Direct Bilirubin AST ALT Alkaline Phosphatase Troponin I High Sens Total Protein Albumin Urine Color Urine Appearance Urine pH Ur Specific [place] Urine Protein Urine Glucose (UA) Urine Ketones Urine Blood Urine Nitrite Ur Leukocyte Esterase Urine RBC Urine WBC Ur Squamous Epith Cells Ur Renal Epithelial Cell Urine Bacteria Urine Osmolality Ur Random Sodium COVID-19 ([facility]HELLE) COVID-19 Clin Com Imaging Radiologist's Impressions: Impressions Chest X-Ray 07/30/21 15:18 IMPRESSION: No acute intrathoracic disease. No evidence of Covid pneumonia. Assessment and Plan (1) Acute hyponatremia: Status: Acute continue replacing volume with maintenance trip of normal saline and monitor BMP and mag q4h (2) COVID-19: Status: Acute Continue Paxlovid, pt will need day 5 doses tomorrow and will end up with an extra morning dose on day 6 as she did not take her morning dose today. (3) Nausea vomiting and diarrhea: Status: Acute Zofran PRN Plan Heparin 5000 Q12H, venodyne boots Critical Care Time 40 mins
[2021-07-30] MEDS: Heparin Sodium,Porcine 5,000 UNIT/ML VIAL 5000 UNIT SUBCUT (22:01)
[2021-07-30] MEDS: Gabapentin 600 MG TABLET PO (22:41)
[2021-07-30] MEDS: metFORMIN HCl 1,000 MG TABLET 1000 MG PO (22:41)
[2021-07-31] VITALS: BP 153/70; PULSE 64; RESP 16; O2SAT 96
[2021-07-31 01:28] LABS: Anion Gap 10 (12-20); Blood Urea Nitrogen 10 mg/dL (9-16); Calcium 7.9 mg/dL (8.4-10.2); Carbon Dioxide 23 mmol/L (22-29); Chloride 97 mmol/L (96-108); Creatinine Clr Calc Pharmacy 82.6; Estimated Glomerular Filt Rate > 60; Glucose Random 103 mg/dL (60-115); Magnesium 1.7 mg/dL (1.6-2.6); Phosphorus 1.8 mg/dL (2.7-4.5); Potassium 5.9 mmol/L (3.3-5.1); Sodium 124 mmol/L (135-145)
--- NOTE | 2021-07-31 01:52 | PC.NURSE ---
Pt to room 1 overflow unit of the ED at 0140. Pt amb from stretcher to bed with 1 assist. Pt denies complaints except weakness. Vitals/rhythm stable.
[2021-07-31] MEDS: Dextrose 5 % 1,000 ML 50 ML IVCONT (03:54)
--- NOTE | 2021-07-31 04:43 | PC.NURSE ---
pt assisted oob to bedside commode. ambs well with 1 assist. chem profile drawn at [address] Castañeda. IV fluids changed as ordered.
[2021-07-31 06:00] VITALS: BMI 24.2
[2021-07-31 07:03] LABS: Anion Gap 13 (12-20); Blood Urea Nitrogen 11 mg/dL (9-16); Calcium 9.5 mg/dL (8.4-10.2); Carbon Dioxide 25 mmol/L (22-29); Chloride 92 mmol/L (96-108); Creatinine Clr Calc Pharmacy 62.7; Estimated Glomerular Filt Rate > 60; Glucose Random 99 mg/dL (60-115); Potassium 3.7 mmol/L (3.3-5.1); Sodium 126 mmol/L (135-145)
[2021-07-31] MEDS: metFORMIN HCl 1,000 MG TABLET 1000 MG PO (08:43)
[2021-07-31 09:18] VITALS: BP 133/57; PULSE 65; RESP 22; TEMP 36.2; O2SAT 94
--- NOTE | 2021-07-31 10:56 | P.PNIM_ITS ---
Subjective Subjective Date of Service: 07/31/21 Interval History: cc: abd pain, diarrhea, found to have hyponateremia interval history:feeling much better Cardiovascular Cardiovascular: Reports no additional cardiovascular complaints Respiratory Respiratory: Reports no additional respiratory complaints Physical Exam Vital Signs: Vital Signs: Last Vital Signs Temp 97.2 F 07/31/21 09:18 Pulse 65 07/31/21 09:18 Resp 22 H 07/31/21 09:18 BP 133/57 L 07/31/21 09:18 Pulse Ox 94 07/31/21 09:18 BMI result Body Mass Index 24.2 General: AO X 3, no acute distress Resp: CTA bilateral, no accessory muscles used CVS: S1,S2,RRR GI: soft, non tender, non distended Neuro: motor grossly intact, alert Psych: appropriate affect, appropriate insight Objective Data Active Medications Ezetimibe (Ezetimibe 10 Mg Tablet) 10 mg PO DAILY [facility] Last Admin: 07/31/21 09:05 Dose: Not Given Documented by: EDDA Non-Admin Reason: Patient Refused Fenofibrate (Fenofibrate 160 Mg Tablet) 160 mg PO DAILY [facility] Last Admin: 07/31/21 09:05 Dose: Not Given Documented by: EDDA Non-Admin Reason: Patient Refused Gabapentin (Gabapentin 600 Mg Tablet) 600 mg PO BID [facility] Last Admin: 07/31/21 09:06 Dose: Not Given Documented by: EDDA Non-Admin Reason: Patient Refused Heparin Sodium (Porcine) (Heparin Sodium,Porcine 5,000 Unit/Ml Vial) 5,000 unit SUBCUT Q12H [facility] Last Admin: 07/30/21 22:01 Dose: 5,000 unit Documented by: CYDNEY Dextrose (D5w) 1,000 mls @ 80 mls/hr IVCONT .[id number] [facility] Last Infusion: 07/31/21 09:08 Dose: 80 mls/hr Documented by: EDDA Losartan Potassium (Losartan Potassium 50 Mg Tablet) 100 mg PO DAILY [facility]; Protocol Metformin HCl (Metformin Hcl 1,000 Mg Tablet) 1,000 mg PO DAILY [facility] Last Admin: 07/31/21 08:43 Dose: 1,000 mg Documented by: EDDA Patient Own Medication (Paxlovid Tablets) 1 each PO BID [facility] Stop: 08/01/21 09:01 Last Admin: 07/31/21 09:05 Dose: Not Given Documented by: EDDA Non-Admin Reason: Taken at Home Pharmacy Consult (Consult Rx Perform Med Rec) 1 each MISCELLANE ONCE PRN PRN Reason: Consult order Labs CBC & Chem 7: 07/30/21 11:56 07/31/21 06:39 Labs: Laboratory Results - last 24 hr 07/30/21 07/30/21 07/30/21 11:56 11:56 15:07 MCV 77.0 L MCH 27.9 MCHC 36.3 H RDW 12.2 Plt Count 251 MPV 8.9 L Immature Gran % (Auto) 0.7 H Neut % (Auto) 49.1 Lymph % (Auto) 36.3 [place] % (Auto) 13.7 H Eos % (Auto) 0.0 Baso % (Auto) 0.2 Lymph # (Auto) 1.5 [place] # (Auto) 0.6 Eos # (Auto) 0.0 Baso # (Auto) 0.0 Abs Immat Gran (auto) 0.03 Absolute Neuts (auto) 2.0 Absolute Nucleated RBC 0.000 Nucleated RBC % (auto) 0.0 Anion Gap 17 Estim Creat Clear Calc 65.5 Estimated GFR > 60 Random Glucose 125 H Calcium 10.0 Phosphorus Magnesium 1.4 L* Total Bilirubin 0.7 Direct Bilirubin 0.3 AST 41 H ALT 60 H Alkaline Phosphatase 66 Troponin I High Sens Total Protein 7.3 Albumin 4.4 Urine Color Urine Appearance Urine pH Ur Specific [place] Urine Protein Urine Glucose (UA) Urine Ketones Urine Blood Urine Nitrite Ur Leukocyte Esterase Urine RBC Urine WBC Ur Squamous Epith Cells Ur Renal Epithelial Cell Urine Bacteria Urine Osmolality Ur Random Sodium COVID-19 ([facility]ACHELLE) COVID-19 Clin Com 07/30/21 07/30/21 07/30/21 15:07 15:07 17:10 MCV MCH MCHC RDW Plt Count MPV Immature Gran % (Auto) Neut % (Auto) Lymph % (Auto) [place] % (Auto) Eos % (Auto) Baso % (Auto) Lymph # (Auto) [place] # (Auto) Eos # (Auto) Baso # (Auto) Abs Immat Gran (auto) Absolute Neuts (auto) Absolute Nucleated RBC Nucleated RBC % (auto) Anion Gap 16 Estim Creat Clear Calc 74.6 Estimated GFR > 60 Random Glucose 116 H Calcium 9.3 D Phosphorus Magnesium Total Bilirubin Direct Bilirubin AST ALT Alkaline Phosphatase Troponin I High Sens 3.8 Total Protein Albumin Urine Color Urine Appearance Urine pH Ur Specific [place] Urine Protein Urine Glucose (UA) Urine Ketones Urine Blood Urine Nitrite Ur Leukocyte Esterase Urine RBC Urine WBC Ur Squamous Epith Cells Ur Renal Epithelial Cell Urine Bacteria Urine Osmolality Ur Random Sodium COVID-19 (RACHELLE) Positive A COVID-19 Clin Com See Note 07/30/21 07/30/21 07/30/21 17:41 17:41 17:41 MCV MCH MCHC RDW Plt Count MPV Immature Gran % (Auto) Neut % (Auto) Lymph % (Auto) [place] % (Auto) Eos % (Auto) Baso % (Auto) Lymph # (Auto) [place] # (Auto) Eos # (Auto) Baso # (Auto) Abs Immat Gran (auto) Absolute Neuts (auto) Absolute Nucleated RBC Nucleated RBC % (auto) Anion Gap Estim Creat Clear Calc Estimated GFR Random Glucose Calcium Phosphorus Magnesium Total Bilirubin Direct Bilirubin AST ALT Alkaline Phosphatase Troponin I High Sens Total Protein Albumin Urine Color YELLOW Urine Appearance CLEAR Urine pH 6.0 Ur Specific [place] 1.015 Urine Protein 2+ H Urine Glucose (UA) NEG Urine Ketones NEG Urine Blood 1+ H Urine Nitrite NEG Ur Leukocyte Esterase NEG Urine RBC 0-2 Urine WBC 0-2 Ur Squamous Epith Cells NONE Ur Renal Epithelial Cell 1+ Urine Bacteria NONE Urine Osmolality 253 L Ur Random Sodium 62.0 COVID-19 ([facility]ACHELLE) COVID-19 Clin Com 07/30/21 07/31/21 07/31/21 20:15 00:28 06:39 MCV MCH MCHC RDW Plt Count MPV Immature Gran % (Auto) Neut % (Auto) Lymph % (Auto) [place] % (Auto) Eos % (Auto) Baso % (Auto) Lymph # (Auto) [place] # (Auto) Eos # (Auto) Baso # (Auto) Abs Immat Gran (auto) Absolute Neuts (auto) Absolute Nucleated RBC Nucleated RBC % (auto) Anion Gap 14 10 L 13 Estim Creat Clear Calc 71.7 82.6 62.7 Estimated GFR > 60 > 60 > 60 Random Glucose 122 H 103 99 Calcium 9.5 7.9 L D 9.5 D Phosphorus 1.8 L Magnesium 2.2 1.7 Total Bilirubin Direct Bilirubin AST ALT Alkaline Phosphatase Troponin I High Sens Total Protein Albumin Urine Color Urine Appearance Urine pH Ur Specific [place] Urine Protein Urine Glucose (UA) Urine Ketones Urine Blood Urine Nitrite Ur Leukocyte Esterase Urine RBC Urine WBC Ur Squamous Epith Cells Ur Renal Epithelial Cell Urine Bacteria Urine Osmolality Ur Random Sodium COVID-19 ([facility]ACHELLE) COVID-19 Clin Com Assessment and Plan (1) Acute hyponatremia: Status: Acute Plan 70F with covid on paxlovid presented with abd pain, diarrhea, hyponatremia of 116, admitted to ICU, received NS, sodium corrected to 120, was downgraded to medicine, sodium now up to 126 hyponatremia complicated by rapid overcorrection was likely due to diarrhea, poor intake now on D5W to slow rate of correction monitor closely nephro following COVID asymptomatic, on paxlovid DM metformin htn losartan, nifedipine hld lofibra dvt prophylaxis - lveenox full code reason for continued hospitalization: close monitoring, ivf, for overcorrected hyponatremia Quality Stroke Does the patient have a stroke diagnosis?: No VTE Prior VTE?: No VTE Risk Level:: Medical - low VTE Device Contraindication: N/A - Device Ordered VTE Drug Contraindication: N/A - Med Ordered
--- NOTE | 2021-07-31 11:49 | PM.CNNEP ---
History of Present Illness Reason for Consult Consult date: 07/31/21 Chief Complaint Chief complaint: Hyponatremia History of Present Illness Narrative: Sinhala speaking 70-year-old female who came to the emergency department with 5 days of nausea, vomiting, diarrhea and fatigue.? Her son states she test positive for COVID 5 days ago? in the patient's PCP started her on Paxlovid 3 days ago.? Patient's labs revealed hyponatremia with a sodium of 117, potassium 4.4, chloride 81, bicarb 23, glucose 125 and Mag 1.4 and Covid +.?She was admitted for further management. Nephrology has been consulted to assist in her clinical care during her current hospital stay Review of Systems Review of Systems Yes all other systems are reviewed and are negative PMFSH Past Medical History Medical History Annual physical exam Claudication DJD (degenerative joint disease), cervical Foot pain, bilateral H. pylori infection Hip pain, right HTN (hypertension) Hx of bone density study Hyperlipidemia Lower back pain Osteoarthritis Osteopenia Shoulder pain, bilateral Shoulder pain, left Type 2 diabetes mellitus Surgical History Surgical History H/O colonoscopy Social History Social History Housing: House Alcohol intake: never Patient Tobacco Use Status: Never used Tobacco e-Cigarette/Vaping Use: Never Used Use of substances other than those prescribed or required for medical reasons: No Advance Directives: No Advance Directives Information Provided: No Current occupational status: retired Meds Allergies Allergy/AdvReac Type Severity Reaction Status Date / Time atorvastatin Allergy Unknown myalgia Verified 07/30/21 11:48 penicillin G Allergy Unknown unknown Verified 07/30/21 11:48 penicillin V Allergy Unknown unknown Verified 07/30/21 11:48 Penicillins Allergy Unknown unknown Verified 07/30/21 11:48 rosuvastatin [Crestor] Allergy Unknown myalgia Verified 07/30/21 11:48 Active Medications: Current Medications Ezetimibe (Ezetimibe 10 Mg Tablet) 10 mg PO DAILY [facility] Last Admin: 07/31/21 09:05 Dose: Not Given Documented by: Enoxaparin Sodium (Enoxaparin Sodium 40 Mg/0.4 Ml Syringe) 40 mg SUBCUT Q24H COUNTS INCLUDE 234 BEDS AT THE [facility] Fenofibrate (Fenofibrate 160 Mg Tablet) 160 mg PO DAILY [facility]S [facility]CLUDE 234 BEDS AT THE [facility] Last Admin: 07/31/21 09:05 Dose: Not Given Documented by: Gabapentin (Gabapentin 600 Mg Tablet) 600 mg PO BID COUNTS INCLUDE 234 BEDS AT THE [facility] Last Admin: 07/31/21 09:06 Dose: Not Given Documented by: Dextrose (D5w) 1,000 mls @ 80 mls/hr IVCONT .[id number] COUNTS INCLUDE 234 BEDS AT THE [facility] Last Infusion: 07/31/21 09:08 Dose: 80 mls/hr Documented by: Losartan Potassium (Losartan Potassium 50 Mg Tablet) 100 mg PO DAILY COUNTS INCLUDE 234 BEDS AT THE [facility]; Protocol Metformin HCl (Metformin Hcl 1,000 Mg Tablet) 1,000 mg PO DAILY COUNTS INCLUDE 234 BEDS AT THE [facility] Last Admin: 07/31/21 08:43 Dose: 1,000 mg Documented by: Nifedipine (Nifedipine Er 30 Mg Tab.Er.24) 30 mg PO DAILY COUNTS INCLUDE 234 BEDS AT THE [facility] Patient Own Medication (Paxlovid Tablets) 1 each PO BID COUNTS INCLUDE 234 BEDS AT THE [facility] Stop: 08/01/21 09:01 Last Admin: 07/31/21 09:05 Dose: Not Given Documented by: Omeprazole (Omeprazole 20 Mg Capsule.Dr) 20 mg PO DAILY PRN PRN Reason: Acid Reflux Pharmacy Consult (Consult Rx Perform Med Rec) 1 each MISCELLANE ONCE PRN PRN Reason: Consult order Home Medications Medication Instructions Recorded Confirmed Last Taken Type ascorbic acid (vitamin C) 500 mg 500 mg PO DAILY 07/30/21 07/30/21 07/29/21 History tablet (Vitamin C) cholecalciferol (vitamin D3) 25 25 mcg PO DAILY 07/30/21 07/30/21 07/29/21 History mcg (1,000 unit) tablet (Vitamin D3) olopatadine 0.1 % eye drops 1 drp OPHTHALMIC (EYE) BID PRN 07/30/21 07/30/21 Unknown History omeprazole 20 mg capsule,delayed 1 cap PO DAILY PRN 07/30/21 07/30/21 Unknown History release Physical Exam Vital Signs: Last Vital Signs Temp 97.2 F 07/31/21 09:18 Pulse 65 07/31/21 09:18 Resp 22 H 07/31/21 09:18 BP 133/57 L 07/31/21 09:18 Pulse Ox 94 07/31/21 09:18 BMI result Body Mass Index 24.2 Const General: comfortable Eyes EOM: EOMs intact bilaterally Neck Neck: Yes supple Resp Auscultation: diminished lung sounds Cardio Rate: regular rate GI Palpation (GI): Soft to palpation Neuro General: moves all extremities Results Lab Results Result Diagrams: 07/30/21 11:56 07/31/21 06:39 Lab results: Chemistry 07/30/21 07/30/21 07/30/21 11:56 17:10 20:15 Sodium 117 L* 116 L* 120 L* Potassium 4.4 4.0 3.5 Carbon Dioxide 23 20 L 25 BUN 14 12 11 Creatinine 0.82 0.72 0.75 Calcium 10.0 9.3 D 9.5 Phosphorus 07/31/21 07/31/21 00:28 06:39 Sodium 124 L 126 L Potassium 5.9 H D 3.7 D Carbon Dioxide 23 25 BUN 10 11 Creatinine 0.65 0.75 Calcium 7.9 L D 9.5 D Phosphorus 1.8 L Hematology 07/30/21 11:56 WBC 4.1 L Hgb 14.7 Plt Count 251 Urinalysis 07/30/21 17:41 Urine Color YELLOW Urine Appearance CLEAR Urine pH 6.0 Ur Specific [place] 1.015 Urine Protein 2+ H Urine Glucose (UA) NEG Urine Ketones NEG Urine Blood 1+ H Urine Nitrite NEG Ur Leukocyte Esterase NEG Urine RBC 0-2 Urine WBC 0-2 Ur Squamous Epith Cells NONE Urine Studies 07/30/21 17:41 Urine Osmolality 253 L Assessment and Plan (1) Acute hyponatremia: Status: Acute Plan Hyponatremia- likely multifactorial with dominant factor of excess ADH ( likely from Paxlovid) Sodium got inappropriately corrected prior to my consult and D5W was started to drop sodium down Once appropriate level is reached today, shall D/C D5W and keep her on fluid restriction Shall closely follow up with the medicine team Procedures Date of Service Date of Service: 07/31/21
--- NOTE | 2021-07-31 12:21 | PC.NURSE ---
pt refused some of her morning meds as well as her Heparin injection, she only took the Metformin. no c/o of nausea, no vomiting noted/reported. no diarrhea reported. no complaints.
--- NOTE | 2021-07-31 13:07 | MHC.CM.PN ---
pt dcd today with [facility] hd will be at [facility]
--- NOTE | 2021-07-31 13:10 | MHC.CM.PN ---
pt lives alone had no servcxies is not vax son will transport home
[2021-07-31 13:14] LABS: Sodium 125 mmol/L (135-145)
--- NOTE | 2021-07-31 13:37 | PC.NURSE ---
report given to Ayde. pt will be transferred to room [id number] by [facility].
[2021-07-31 14:13] VITALS: BP 142/68; PULSE 78; RESP 17; TEMP 36; O2SAT 98
[2021-07-31 15:54] VITALS: BP 121/52; PULSE 70; RESP 18; TEMP 36.6; O2SAT 96
[2021-07-31 16:08] VITALS: BMI 24.2
[2021-07-31 16:39] LABS: Sodium 123 mmol/L (135-145)
[2021-07-31 19:53] VITALS: BP 122/62; PULSE 73; RESP 16; TEMP 36.5; O2SAT 98
[2021-07-31 23:23] VITALS: BP 125/59; PULSE 66; RESP 18; TEMP 36.2; O2SAT 98
[2021-08-01 03:59] VITALS: BP 121/58; PULSE 71; RESP 18; TEMP 36.6; O2SAT 98
[2021-08-01] MEDS: Enoxaparin Sodium 40 MG/0.4 ML SYRINGE SUBCUT (05:33)
[2021-08-01 07:13] LABS: Hematocrit 40.7 % (37.0-47.0); Hemoglobin 14.4 g/dl (12.0-16.0); Mean Corpuscular HGB Conc 35.4 g/dl (31.0-35.0); Mean Corpuscular Hemoglobin 28.2 pg (27.0-33.0); Mean Corpuscular Volume 79.6 fL (80.0-98.0); Mean Platelet Volume 9.2 fL (9.4-12.3); Platelet Count 251 X10*3/uL (160-400); Red Blood Count 5.11 X10*6/uL (4.20-5.50); Red Cell Distribution Width 12.5 % (11.0-16.0); White Blood Count 7.2 X10*3/uL (4.8-10.8)
[2021-08-01 07:45] VITALS: BP 142/63; PULSE 69; RESP 18; TEMP 36.3; O2SAT 97
[2021-08-01 07:53] LABS: Anion Gap 13 (12-20); Blood Urea Nitrogen 15 mg/dL (9-16); Carbon Dioxide 29 mmol/L (22-29); Chloride 91 mmol/L (96-108); Creatinine Clr Calc Pharmacy 58.1; Estimated Glomerular Filt Rate > 60; Glucose Fasting 82 mg/dL (60-99); Potassium 4.1 mmol/L (3.3-5.1); Sodium 129 mmol/L (135-145)
[2021-08-01 07:59] LABS: Calcium 9.9 mg/dL (8.4-10.2)
[2021-08-01] MEDS: Gabapentin 600 MG TABLET PO (09:27)
[2021-08-01] MEDS: Fenofibrate 160 MG TABLET PO (09:27)
[2021-08-01] MEDS: metFORMIN HCl 1,000 MG TABLET 1000 MG PO (09:28)
[2021-08-01] MEDS: NIFEdipine ER 30 MG TAB.ER.24 PO (09:28)
[2021-08-01] MEDS: Ezetimibe 10 MG TABLET PO (09:28)
[2021-08-01 11:20] VITALS: BP 128/59; PULSE 67; RESP 18; TEMP 36.6; O2SAT 98
--- NOTE | 2021-08-01 11:28 | PM.PNNEP ---
Subjective Subjective Date of Service: 08/01/21 Interval history: Events noted. All recent data reviewed Physical Exam Vital Signs: Vital Signs: Last Vital Signs Temp 97.9 F 08/01/21 11:20 Pulse 67 08/01/21 11:20 Resp 18 08/01/21 11:20 BP 128/59 L 08/01/21 11:20 Pulse Ox 98 08/01/21 11:20 BMI result Body Mass Index 24.2 Const: General: no acute distress Eyes: EOM: EOMs intact bilaterally Neck: Neck: Yes supple Resp: Auscultation: diminished lung sounds Cardio: Rate: regular rate GI: Palpation (GI): Soft to palpation Neuro: General: moves all extremities Objective Data Labs CBC & Chem 7: 08/01/21 06:38 08/01/21 06:38 Labs: Laboratory Results - last 24 hr 07/31/21 07/31/21 08/01/21 12:14 16:04 06:38 WBC 7.2 RBC 5.11 Hgb 14.4 Hct 40.7 MCV 79.6 L MCH 28.2 MCHC 35.4 H RDW 12.5 Plt Count 251 MPV 9.2 L Absolute Nucleated RBC 0.000 Nucleated RBC % (auto) 0.0 Sodium 125 L 123 L Potassium Chloride Carbon Dioxide Anion Gap BUN Creatinine Estim Creat Clear Calc Estimated GFR Fasting Glucose Calcium 08/01/21 06:38 WBC RBC Hgb Hct MCV MCH MCHC RDW Plt Count MPV Absolute Nucleated RBC Nucleated RBC % (auto) Sodium 129 L Potassium 4.1 Chloride 91 L Carbon Dioxide 29 Anion Gap 13 BUN 15 Creatinine 0.81 Estim Creat Clear Calc 58.1 Estimated GFR > 60 Fasting Glucose 82 Calcium 9.9 Procedures Date of Service Date of Service: 08/01/21 Assessment & Plan Assessment and plan (1) Acute hyponatremia: Status: Acute Assessment and Plan: Hyponatremia- likely multifactorial with dominant factor of excess ADH ( likely from Paxlovid) Na appropriately corrected now; Shall keep her on fluid restriction Shall closely follow up with the medicine team Time Spent With Patient Time: Total time spent is greater than 50% in coordination of care (as documented) at patient's floor/unit and/or counseling patient: Progress Note: Quality Stroke Does the patient have a stroke diagnosis?: No
--- NOTE | 2021-08-01 14:25 | HO.PM.IMPN ---
Subjective Subjective Date of Service: 08/01/21 Interval History: cc: feels better today Resolved abd pain, diarrhea improving hyponateremia feeling much better Review of Systems No fever, chills but reports generalized weakness No chest pain, palpitation No shortness of breath or coughing No abdominal pain, nausea or vomiting No urinary symptoms No any rash or wounds Physical Exam Vital Signs: Vital Signs: Last Vital Signs Temp 97.9 F 08/01/21 11:20 Pulse 67 08/01/21 11:20 Resp 18 08/01/21 11:20 BP 128/59 L 08/01/21 11:20 Pulse Ox 98 08/01/21 11:20 BMI result Body Mass Index 24.2 Const: Other: Constitutional : Alert, oriented, not in distress Neck : Normal inspection, Supple Cardiovascular : RRR, no JVP, no lower extremity edema Respiratory : fair bilateral air entry, no crackles, wheezes or rhonchi Gastrointestinal: soft, lax, Normal bowel sounds, Non tender Skin : Warm, Dry Neurological : Alert & oriented x3, No focal deficit , CN 2-12 within normal Objective Data Active Medications Ezetimibe (Ezetimibe 10 Mg Tablet) 10 mg PO DAILY [facility] Last Admin: 08/01/21 09:28 Dose: 10 mg Documented by: NATHAN Enoxaparin Sodium (Enoxaparin Sodium 40 Mg/0.4 Ml Syringe) 40 mg SUBCUT Q24H [facility] Last Admin: 08/01/21 05:33 Dose: 40 mg Documented by: FERNANDO Fenofibrate (Fenofibrate 160 Mg Tablet) 160 mg PO DAILY [facility] Last Admin: 08/01/21 09:27 Dose: 160 mg Documented by: NATHAN Gabapentin (Gabapentin 600 Mg Tablet) 600 mg PO BID [facility] Last Admin: 08/01/21 09:27 Dose: 600 mg Documented by: NATHAN Losartan Potassium (Losartan Potassium 50 Mg Tablet) 100 mg PO DAILY [facility]; Protocol Metformin HCl (Metformin Hcl 1,000 Mg Tablet) 1,000 mg PO DAILY [facility] Last Admin: 08/01/21 09:28 Dose: 1,000 mg Documented by: NATHAN Nifedipine (Nifedipine Er 30 Mg Tab.Er.24) 30 mg PO DAILY [facility] Last Admin: 08/01/21 09:28 Dose: 30 mg Documented by: NATHAN Omeprazole (Omeprazole 20 Mg Capsule.) 20 mg PO DAILY PRN PRN Reason: Acid Reflux Pharmacy Consult (Consult Rx Perform Med Rec) 1 each MISCELLANE ONCE PRN PRN Reason: Consult order Labs CBC & Chem 7: 08/01/21 06:38 08/01/21 06:38 Labs: Laboratory Results - last 24 hr 08/01/21 08/01/21 06:38 06:38 MCV 79.6 L MCH 28.2 MCHC 35.4 H RDW 12.5 Plt Count 251 MPV 9.2 L Absolute Nucleated RBC 0.000 Nucleated RBC % (auto) 0.0 Anion Gap 13 Estim Creat Clear Calc 58.1 Estimated GFR > 60 Fasting Glucose 82 Calcium 9.9 Assessment and Plan (1) Acute hyponatremia: Status: Acute (2) COVID-19: Status: Acute (3) Nausea vomiting and diarrhea: Status: Acute Plan 70F with covid on paxlovid presented with abd pain, diarrhea, hyponatremia of 116, admitted to ICU, received NS, sodium corrected to 120, was downgraded to medicine, sodium now up to 126 hyponatremia complicated by rapid overcorrection likely due to diarrhea, poor intake, SIADH from Paxlovid on D5W to slow rate of correction sodium 129 today monitor closely nephro following, fluid restriction COVID asymptomatic, DC paxlovid DM metformin htn losartan, nifedipine hld lofibra dvt prophylaxis - lveenox full code reason for continued hospitalization: patient needs close monitoring, continue ivf for hyponatremia to prevent possible decompensation Quality Stroke Does the patient have a stroke diagnosis?: No VTE Prior VTE?: No VTE Risk Level:: Medical - low VTE Device Contraindication: N/A - Device Ordered VTE Drug Contraindication: N/A - Med Ordered
--- NOTE | 2021-08-01 14:50 | MHC.CM.PN ---
Female 70 DX Covid Per MD rounds no discharge today. DP Home with family transport. Patient is aware that any chanes in dc needs will be addressed for a safe discharge.
[2021-08-01 15:13] VITALS: BP 123/59; PULSE 78; RESP 19; TEMP 36.5; O2SAT 97
[2021-08-01 15:53] VITALS: BP 123/59; PULSE 78; RESP 17; TEMP 36.5; O2SAT 97
[2021-08-01 16:05] LABS: Anion Gap 14 (12-20); Blood Urea Nitrogen 16 mg/dL (9-16); Calcium 10.1 mg/dL (8.4-10.2); Carbon Dioxide 28 mmol/L (22-29); Chloride 91 mmol/L (96-108); Creatinine Clr Calc Pharmacy 59.6; Estimated Glomerular Filt Rate > 60; Glucose Random 119 mg/dL (60-115); Potassium 4.2 mmol/L (3.3-5.1); Sodium 129 mmol/L (135-145)
[2021-08-01 19:51] VITALS: BP 133/53; PULSE 72; RESP 18; TEMP 36.7; O2SAT 95
[2021-08-02] VITALS: BP 127/55; PULSE 73; RESP 18; TEMP 37.1; O2SAT 96
[2021-08-02 03:46] VITALS: BP 100/59; PULSE 70; RESP 20; TEMP 36.6; O2SAT 97
[2021-08-02] MEDS: Enoxaparin Sodium 40 MG/0.4 ML SYRINGE SUBCUT (05:08)
[2021-08-02 07:42] LABS: Anion Gap 12 (12-20); Blood Urea Nitrogen 19 mg/dL (9-16); Calcium 9.7 mg/dL (8.4-10.2); Carbon Dioxide 27 mmol/L (22-29); Chloride 96 mmol/L (96-108); Creatinine Clr Calc Pharmacy 51.2; Estimated Glomerular Filt Rate > 60; Glucose Random 94 mg/dL (60-115); Potassium 3.8 mmol/L (3.3-5.1); Sodium 131 mmol/L (135-145)
[2021-08-02 08:00] VITALS: BP 115/58; PULSE 76; RESP 12; TEMP 36.7; O2SAT 96
--- NOTE | 2021-08-02 10:24 | PC.NURSE ---
Pt refused all morning medications. Dr. Jerome made aware. will continue to monitor.
--- NOTE | 2021-08-02 10:39 | P.DS_ITS ---
DS: Providers Provider Date of Service: 08/02/21 Date of admission: 07/30/21 18:28 Primary care physician: Beronica Tapia MD Consults: 07/31/21 08:32 Consult to Nephrology Routine Consulting Provider: Сергей Almonte Reason for consultation: hyponatremia, overcorrected DS: Diagnosis Discharge Diagnosis (1) Acute hyponatremia: Status: Acute (2) COVID-19: Status: Acute (3) Nausea vomiting and diarrhea: Status: Acute DS: Summary Hospital Course Hospital Course: Admission note HPI by ICU team Patient is a Latvian speaking 70-year-old female who came to the emergency department with her? son who interpreted for her, complaining of 5 days of nausea, vomiting, diarrhea and fatigue.? Her son states she test positive for COVID 5 days ago? in the patient's PCP started her on Paxlovid 3 days ago.? She has been taking the Paxlovid but did not take her dose this morning.? Her son also told the emergency department that patient is not vaccinated for COVID. ? In the emergency department,? the patient's vital signs were stable except for slight hypertension ranging from 158/70 to 141/63.? Patient's labs revealed hyponatremia with a sodium of 117, potassium 4.4, chloride 81, bicarb 23, glucose 125 and Mag 1.4 and Covid +.? ? Urine osmolality was low at 253, likely secondary to hypovolemia, urine sodium 62. Patient was given 2 g of magnesium and 1L NS,? repeat labs showed sodium down to 116, potassium 4.0, chloride 84, bicarb 20.? Patient was given 1 more L of normal saline and repeat labs showed patient's sodium is up to 120,? potassium 3.5, chloride 85, bicarb 25 and magnesium 2.2. During my physical exam, the patient was able to express she was feeling much better, she was sitting up in bed. Her VSS and PE was unremarkable.? Her son brought in the Paxlovid and I watched her take her evening dose,? this would be day 4 evening dose.? She did not take the day 4 morning dose.? I communicated with the pharmacy to let them know, they will go to the patient's room in the ED and put a prescription label on the medication and secure the med. Supervisor Forming Department refused admission therefore, after speaking with Dr. Herrera, we will admit the patient to the ICU. Will start maintenance drip of NS and repeat labs in 3 hours. Hospital course The patient was admitted to ICU for clot we monitoring of hyponatremia of 116 believed to be secondary to vomiting and diarrhea with usage of Paxlovid. Her sodium levels improved steadily during the hospital stay up to 131 as she was monitored my aircraft engineer S the patient was able to ambulate on room air with no reported dyspnea or shortness of breath. She did not require any active treatment for COVID-19 or oxygen supplement. Kept on fluid restriction diet for a thought of SIADH along with dehydration as a goes of her hyponatremia. to be discharged home on her home medications. To continue fluid restriction and to repeat blood work next week with plan to follow up with Nephrology. Time Spent with Patient Time attestation: Total time spent providing and/or coordinating discharge services: Discharge coordination time: Greater than 30 minutes Quality: Safe Use of Opioids Does Pt have an Active Cancer Diagnosis on the Problem List?: No Quality: Stroke Does the patient have a stroke diagnosis?: No Physical Exam Vital Signs: Vital Signs: Last Vital Signs Temp 98.1 F 08/02/21 08:00 Pulse 76 08/02/21 08:00 Resp 12 08/02/21 08:00 BP 115/58 L 08/02/21 08:00 Pulse Ox 96 08/02/21 08:00 BMI result Body Mass Index 24.2 Const: Other: Constitutional : Alert, oriented, not in distress Neck : Normal inspection, Supple Cardiovascular : RRR, no JVP, no lower extremity edema Respiratory : fair bilateral air entry, no crackles, wheezes or rhonchi Gastrointestinal: soft, lax, Normal bowel sounds, Non tender Skin : Warm, Dry Neurological : Alert & oriented x3, No focal deficit , CN 2-12 within normal DS: Data Data Completed and Pending Labs on day of discharge: Laboratory Results - last 24 hr 08/01/21 08/02/21 15:34 06:46 Sodium 129 L 131 L Potassium 4.2 3.8 Chloride 91 L 96 Carbon Dioxide 28 27 Anion Gap 14 12 BUN 16 19 H Creatinine 0.79 0.92 Estim Creat Clear Calc 59.6 51.2 Estimated GFR > 60 > 60 Random Glucose 119 H 94 Calcium 10.1 9.7 Discharge Plan Discharge Patient Disposition: Home, Self-Care Discharge Diagnosis: Covid 19 infection Hyponatremia Referrals: Beronica Tapia MD [Primary Care Provider] - 1 Week Discharge Medications: Continued (DME) compr.stocking,thigh,reg,large Misc See Rx Instructions .ROUTE .MEDSUPPLY Qty: 2 0RF Rx Instructions: 15-20 mmHg metformin 500 mg tablet 1,000 mg PO DAILY Qty: 180 3RF losartan 100 mg tablet 100 mg PO DAILY Qty: 90 3RF nifedipine 30 mg tablet extended release 30 mg PO DAILY Qty: 90 3RF fenofibrate 160 mg tablet 160 mg PO DAILY Qty: 90 3RF ezetimibe 10 mg tablet 10 mg PO DAILY Qty: 90 3RF (DME) blood sugar diagnostic Strip See Rx Instructions .ROUTE .MEDSUPPLY Qty: 100 3RF Rx Instructions: ONE TOUCH ULTRA BLUE TEST STRIPS (new) 100 USE TWICE A DAY TO TEST BLOOD SUGARS. ascorbic acid (vitamin C) [Vitamin C] 500 mg Tablet 500 mg PO DAILY 0RF omeprazole 20 mg capsule,delayed release(DR/EC) 1 cap PO DAILY PRN (Reason: Acid Reflux) 0RF cholecalciferol (vitamin D3) [Vitamin D3] 25 mcg (1,000 unit) Tablet 25 mcg PO DAILY 0RF olopatadine 0.1 % drops 1 drp ophthalmic (eye) BID PRN (Reason: Allergy Symptoms) 0RF Rx Instructions: separate doses by at least 6-8 hours gabapentin 600 mg tablet 600 mg PO BID Qty: 180 3RF Discontinued Paxlovid (EUA) 150 mg x 2- 100 mg tablet See Rx Instructions PO .COMPLEX Qty: 30 0RF Rx Instructions: take TWO 150 mg tablets of nirmatrelvir with ONE 100 mg tablet of ritonavir twice daily for 5 days PO Discharge Orders: Discharge Order (Routine); Ordered 08/02/21 Ordered By: Christie Jerome Diet: advance to usual diet Activity on Discharge: As tolerated Stand Alone Forms: Patient Portal Discharge page Other Ambulatory Orders: Basic Metabolic Panel (Routine) Timeframe: [id number] Facility: [facility] - Location: Laboratory Ordered By: Christie Jerome Care Plan Goals: Read below Health Concerns: Read below Plan of Treatment: Read below Assessment: you were admitted to the hospital for evaluation of low sodium. Admitted to ICU for close monitoring the as you were evaluated by kidney doctor. Your sodium level improved steadily during the hospital stay. You you were also monitored for COVID-19 infection. He did not require any active medication or oxygen supplement. Discontinue Paxilovid Decrease your water intake to 1 L daily for the next 3 days To repeat blood work next week and to be followed by aircraft engineer.
--- NOTE | 2021-08-02 10:54 | PM.PNNEP ---
Subjective Subjective Date of Service: 08/02/21 Interval history: Events noted. All recent data reviewed Physical Exam Vital Signs: Vital Signs: Last Vital Signs Temp 98.1 F 08/02/21 08:00 Pulse 76 08/02/21 08:00 Resp 12 08/02/21 08:00 BP 115/58 L 08/02/21 08:00 Pulse Ox 96 08/02/21 08:00 BMI result Body Mass Index 24.2 Const: General: no acute distress Eyes: EOM: EOMs intact bilaterally Neck: Neck: Yes supple Resp: Auscultation: diminished lung sounds Cardio: Rate: regular rate GI: Palpation (GI): Soft to palpation Neuro: General: moves all extremities Objective Data Labs CBC & Chem 7: 08/01/21 06:38 08/02/21 06:46 Labs: Laboratory Results - last 24 hr 08/01/21 08/02/21 15:34 06:46 Sodium 129 L 131 L Potassium 4.2 3.8 Chloride 91 L 96 Carbon Dioxide 28 27 Anion Gap 14 12 BUN 16 19 H Creatinine 0.79 0.92 Estim Creat Clear Calc 59.6 51.2 Estimated GFR > 60 > 60 Random Glucose 119 H 94 Calcium 10.1 9.7 Procedures Date of Service Date of Service: 08/02/21 Assessment & Plan Assessment and plan (1) Acute hyponatremia: Status: Acute Assessment and Plan: Hyponatremia- likely multifactorial with dominant factor of excess ADH ( likely from Paxlovid) Na appropriately corrected now; Shall? keep her on fluid restriction; BP well controlled now Shall closely follow up with the medicine team Time Spent With Patient Time: Total time spent is greater than 50% in coordination of care (as documented) at patient's floor/unit and/or counseling patient: Progress Note: Quality Stroke Does the patient have a stroke diagnosis?: No
--- NOTE | 2021-08-02 11:23 | MHC.CM.PN ---
IMM 08/02/21 Female dx covid is dc home today with family transport.
[2021-08-02 11:32] VITALS: BP 126/57; PULSE 75; RESP 16; TEMP 36.7; O2SAT 96
== END 2021-08-02 12:37 | disposition home or self-care (01) | DRG 643 ==
LOC: HO.ED 18:05 → HO.EDOVER 18:56 → HO.IMC 07-31 12:40
PROVIDERS: Hospitalist; Internal Medicine; Physician Assistant; Admitting Provider Internal Medicine Cardiovascular Disease; Emergency Provider Emergency Medicine; PCP Internal Medicine; Visit Provider Student in an Organized Health Care Education/Training Program
DX: E22.2 Syndrome of inappropriate secretion of antidiuretic hormone (principal); U07.1 COVID-19; E78.5 Hyperlipidemia, unspecified; E11.9 Type 2 diabetes mellitus without complications; E86.0 Dehydration; T37.5X5A Adverse effect of antiviral drugs, initial encounter; Z28.310 Unvaccinated for COVID-19; Z88.0 Allergy status to penicillin; Z79.84 Long term (current) use of oral hypoglycemic drugs; Z79.899 Other long term (current) drug therapy
CPT/HCPCS: 36415; 71045; 80048; 80076; 81001; 83735; 83935; 84100; 84295; 84300; 84484; 85025; 85027; 87635; 93005; 96361; 96365; 96366; 96375; 99285; 99291; J1650; J2405; J3475

== ENCOUNTER 2021-08-06 11:02 | Outpatient (REF) | payer MEDICARE, MEDICAID, SELFPAY ==
[2021-08-06 13:57] LABS: Anion Gap 14 (12-20); Blood Urea Nitrogen 24 mg/dL (9-16); Calcium 10.4 mg/dL (8.4-10.2); Carbon Dioxide 26 mmol/L (22-29); Chloride 99 mmol/L (96-108); Estimated Glomerular Filt Rate > 60; Glucose Random 111 mg/dL (60-115); Potassium 4.4 mmol/L (3.3-5.1); Sodium 135 mmol/L (135-145)
== END 2021-08-06 11:03 | disposition home or self-care (01) ==
LOC: HO.HMGCLDS 11:02
PROVIDERS: PCP Internal Medicine; Visit Provider Student in an Organized Health Care Education/Training Program
DX: E87.1 Hypo-osmolality and hyponatremia (principal)
CPT/HCPCS: 36415; 80048

== ENCOUNTER 2021-12-20 09:02 | Outpatient (REF) | payer MEDICARE, MEDICAID, SELFPAY ==
[2021-12-20 11:22] LABS: Estimated Average Glucose 140 mg/dL; Hemoglobin A1c % 6.5 %
[2021-12-20 11:30] LABS: Alanine Aminotransferase 47 U/L (0-31); Albumin Level 4.4 g/dL (3.5-5.0); Alkaline Phosphatase 69 U/L (39-117); Anion Gap 13 (12-20); Aspartate Amino Transferase 41 U/L (5-31); Bilirubin Total 0.4 mg/dL (0.0-1.0); Blood Urea Nitrogen 18 mg/dL (9-16); Carbon Dioxide 31 mmol/L (22-29); Chloride 100 mmol/L (96-108); Cholesterol 212 mg/dL; Estimated Glomerular Filt Rate > 60; Glucose Fasting 126 mg/dL (60-99); HDL Cholesterol 55 mg/dL; LDL Cholesterol Calculated 121 mg/dl; Potassium 4.7 mmol/L (3.3-5.1); Sodium 139 mmol/L (135-145); Total Protein 7.2 g/dL (6.5-8.0); Triglycerides 182 mg/dL
[2021-12-20 11:40] LABS: Creatinine Urine 47.46 mg/dL; Microalbum/Creatinine Ratio Ur 50.5 ug/mg cr
== END 2021-12-20 09:03 | disposition home or self-care (01) ==
LOC: HO.HMGCLDS 09:02
PROVIDERS: PCP Internal Medicine; Visit Provider Internal Medicine
DX: E11.9 Type 2 diabetes mellitus without complications (principal); I10 Essential (primary) hypertension; E78.5 Hyperlipidemia, unspecified
CPT/HCPCS: 36415; 80053; 80061; 82043; 83036

== ENCOUNTER 2022-04-22 08:15 | Outpatient (REF) | payer MEDICARE, MEDICAID, SELFPAY ==
[2022-04-22 12:05] LABS: Estimated Average Glucose 140 mg/dL; Hemoglobin A1c % 6.5 %
[2022-04-22 12:06] LABS: Alanine Aminotransferase 52 U/L (0-31); Albumin Level 4.3 g/dL (3.5-5.0); Alkaline Phosphatase 79 U/L (39-117); Anion Gap 16 (12-20); Aspartate Amino Transferase 37 U/L (5-31); Bilirubin Total 0.5 mg/dL (0.0-1.0); Blood Urea Nitrogen 15 mg/dL (9-16); Calcium 10.1 mg/dL (8.4-10.2); Carbon Dioxide 27 mmol/L (22-29); Chloride 103 mmol/L (96-108); Estimated Glomerular Filt Rate > 60; Glucose Fasting 121 mg/dL (60-99); Potassium 4.5 mmol/L (3.3-5.1); Sodium 141 mmol/L (135-145); Total Protein 7.1 g/dL (6.5-8.0)
== END 2022-04-22 08:16 | disposition home or self-care (01) ==
LOC: HO.HMGCLDS 08:15
PROVIDERS: PCP Internal Medicine; Visit Provider Internal Medicine
DX: E11.9 Type 2 diabetes mellitus without complications (principal); E78.5 Hyperlipidemia, unspecified; I10 Essential (primary) hypertension
CPT/HCPCS: 36415; 80053; 83036

== ENCOUNTER 2022-07-15 10:58 | Outpatient (REF) | payer MEDICARE, MEDICAID, SELFPAY ==
[2022-07-15 14:00] LABS: MANUAL DIFF FLAG NO
[2022-07-15 14:11] LABS: Basophils Percent Auto 0.5 % (0-2); Eosinophils Absolute Auto 0.1 X10*3/uL (0.0-0.4); Eosinophils Percent Auto 2.1 % (0-4); Hemoglobin 13.3 g/dl (12.0-16.0); Imm Gran Abs Auto 0.04 X10*3/uL (0.00-0.03); Imm Gran Pct Auto 0.7 % (0.0-0.4); Lymphocytes Absolute Auto 1.7 X10*3/uL (1.2-4.9); Lymphocytes Percent Auto 27.6 % (20-40); Mean Corpuscular HGB Conc 32.4 g/dl (31.0-35.0); Mean Corpuscular Hemoglobin 28.2 pg (27.0-33.0); Mean Corpuscular Volume 86.9 fL (80.0-98.0); Mean Platelet Volume 10.3 fL (9.4-12.3); Monocytes Absolute Auto 0.4 X10*3/uL (0.1-1.2); Monocytes Percent Auto 6.8 % (2-11); Neutrophils Absolute Auto 3.8 x10*3/uL (2.0-8.3); Neutrophils Percent Auto 62.3 % (45-73); Platelet Count 250 X10*3/uL (160-400); Red Blood Count 4.72 X10*6/uL (4.20-5.50); Red Cell Distribution Width 13.4 % (11.0-16.0); White Blood Count 6.1 X10*3/uL (4.8-10.8)
[2022-07-15 14:22] LABS: Anion Gap 14 (12-20); Blood Urea Nitrogen 15 mg/dL (9-16); Calcium 9.8 mg/dL (8.4-10.2); Carbon Dioxide 29 mmol/L (22-29); Chloride 102 mmol/L (96-108); Estimated Glomerular Filt Rate > 60; Glucose Random 200 mg/dL (60-115); Potassium 4.8 mmol/L (3.3-5.1); Sodium 140 mmol/L (135-145)
== END 2022-07-15 10:59 | disposition home or self-care (01) ==
LOC: HO.HMGCLDS 10:58
PROVIDERS: PCP Internal Medicine; Visit Provider Nurse Practitioner Family
DX: R19.7 Diarrhea, unspecified (principal)
CPT/HCPCS: 36415; 80048; 85025

== ENCOUNTER 2022-08-13 08:02 | Outpatient (REF) | payer MEDICARE, MEDICAID, SELFPAY ==
[2022-08-13 11:16] LABS: MANUAL DIFF FLAG NO
[2022-08-13 11:39] LABS: Basophils Absolute Auto 0.1 X10*3/uL (0.0-0.2); Basophils Percent Auto 1.2 % (0-2); Eosinophils Absolute Auto 0.2 X10*3/uL (0.0-0.4); Eosinophils Percent Auto 3.6 % (0-4); Estimated Average Glucose 148 mg/dL; Hematocrit 39.7 % (37.0-47.0); Hemoglobin 12.7 g/dl (12.0-16.0); Hemoglobin A1c % 6.8 %; Imm Gran Abs Auto 0.03 X10*3/uL (0.00-0.03); Imm Gran Pct Auto 0.5 % (0.0-0.4); Lymphocytes Absolute Auto 1.8 X10*3/uL (1.2-4.9); Lymphocytes Percent Auto 31.6 % (20-40); Mean Corpuscular Hemoglobin 27.9 pg (27.0-33.0); Mean Corpuscular Volume 87.1 fL (80.0-98.0); Mean Platelet Volume 10.1 fL (9.4-12.3); Monocytes Absolute Auto 0.5 X10*3/uL (0.1-1.2); Monocytes Percent Auto 9.1 % (2-11); Platelet Count 291 X10*3/uL (160-400); Red Blood Count 4.56 X10*6/uL (4.20-5.50); Red Cell Distribution Width 13.3 % (11.0-16.0); White Blood Count 5.6 X10*3/uL (4.8-10.8)
[2022-08-13 11:53] LABS: Creatinine Urine 53.73 mg/dL; Microalbum/Creatinine Ratio Ur 33.5 ug/mg cr
[2022-08-13 11:59] LABS: Alanine Aminotransferase 44 U/L (0-31); Alkaline Phosphatase 77 U/L (39-117); Anion Gap 12 (12-20); Aspartate Amino Transferase 32 U/L (5-31); Bilirubin Total 0.4 mg/dL (0.0-1.0); Blood Urea Nitrogen 25 mg/dL (9-16); Calcium 10.1 mg/dL (8.4-10.2); Carbon Dioxide 29 mmol/L (22-29); Chloride 106 mmol/L (96-108); Cholesterol 205 mg/dL; Estimated Glomerular Filt Rate 45; Glucose Fasting 121 mg/dL (60-99); HDL Cholesterol 48 mg/dL; LDL Cholesterol Calculated 107 mg/dl; Potassium 5.5 mmol/L (3.3-5.1); Sodium 141 mmol/L (135-145); Total Protein 6.8 g/dL (6.5-8.0); Triglycerides 252 mg/dL
[2022-08-13 12:17] LABS: Vitamin D 25-OH Total 79.5 ng/mL (>30)
== END 2022-08-13 08:03 | disposition home or self-care (01) ==
LOC: HO.HMGCLDS 08:02
PROVIDERS: PCP Internal Medicine; Visit Provider Internal Medicine
DX: E11.9 Type 2 diabetes mellitus without complications (principal); E78.5 Hyperlipidemia, unspecified; E55.9 Vitamin D deficiency, unspecified; I10 Essential (primary) hypertension
CPT/HCPCS: 36415; 80053; 80061; 82043; 82306; 83036; 85025

== ENCOUNTER 2022-08-14 13:43 | Outpatient (REF) | payer MEDICARE, MEDICAID, SELFPAY ==
[2022-08-14 16:41] LABS: Potassium 5.4 mmol/L (3.3-5.1)
== END 2022-08-14 13:44 | disposition home or self-care (01) ==
LOC: HO.HMGCLDS 13:43
PROVIDERS: PCP Internal Medicine; Visit Provider Internal Medicine
DX: E87.5 Hyperkalemia (principal)
CPT/HCPCS: 36415; 84132

== ENCOUNTER 2022-08-21 12:47 | Outpatient (REF) | payer MEDICARE, MEDICAID, SELFPAY ==
[2022-08-21 14:16] LABS: Anion Gap 14 (12-20); Blood Urea Nitrogen 19 mg/dL (9-16); Calcium 10.5 mg/dL (8.4-10.2); Carbon Dioxide 29 mmol/L (22-29); Chloride 100 mmol/L (96-108); Estimated Glomerular Filt Rate 52; Glucose Random 144 mg/dL (60-115); Potassium 4.7 mmol/L (3.3-5.1); Sodium 138 mmol/L (135-145)
== END 2022-08-21 12:48 | disposition home or self-care (01) ==
LOC: HO.HMGCLDS 12:47
PROVIDERS: PCP Internal Medicine; Visit Provider Internal Medicine
DX: E87.5 Hyperkalemia (principal)
CPT/HCPCS: 36415; 80048

== ENCOUNTER 2022-11-12 12:10 | Outpatient (AMB) | payer MEDICARE, MEDICAID, SELFPAY ==
--- NOTE | 2022-11-12 13:05 | AM.OFFWIN_ITS ---
Intake Vital Signs 11/12/22 13:06 Height 5 ft 4 in Weight 73.936 kg BMI 28.0 BP 132/64 Blood Pressure Location Lt brachial Position Sitting Pulse 64 Pulse Source Pulse Oximeter Temp 97.2 F Temp Source Temporal Artery Scan Pulse Oximetry (%) 99 Oxygen Delivery Method Room Air Intake Visit Reasons: EST/tiredness, low appetite Intake Note: Pt is here c/o feeling tired and having no appetite for seven days. Patient Tobacco Use Status: Never used Tobacco Allergies penicillin G Allergy (Severe, Verified 11/12/22 13:06) SOB throuble breathing penicillin V Allergy (Severe, Verified 11/12/22 13:06) SOB trouble breathing atorvastatin Allergy (Unknown, Verified 11/12/22 13:06) myalgia Penicillins Allergy (Unknown, Verified 11/12/22 13:06) SOB trouble breathing rosuvastatin [Crestor] Allergy (Unknown, Verified 11/12/22 13:06) myalgia HPI HPI Comments History of Present Illness Details 1316 72-year-old female history of hyperkalemia, degenerative joint disease, diabetes, hyperlipidemia, hypertension, low back pain presenting with fatigue, decreased appetite for the past 5-7 days, worsening. Patient reports she feels like she has no energy, this is unlike her. No other complaints. Denies chest pain, shortness of breath, nausea, vomiting, abdominal pain, headache, vision changes, dizziness, weakness. No reports of active bleeding. Physical exam benign. No signs of stroke, posterior stroke, intracranial hemorrhage. Will obtain basic labs to rule out electrolyte abnormalities, anemia. Also obtain an EKG to rule out dysrhythmia/AFib although unlikely. Will follow-up on labs and call patient with result will have her follow-up with PCP. Educated patient on diagnosis and treatment plan, answered all question, patient verbalizes understanding. At this time patient will be discharged home, advised to return with new or worsening symptoms. Educated on worrisome signs and symptoms and when to return. At this time I feel comfortable discharge home. [facility], [facility] Medical History Annual physical exam Claudication DJD (degenerative joint disease), cervical Foot pain, bilateral H. pylori infection Hip pain, right HTN (hypertension) Hx of bone density study Hyperlipidemia Lower back pain Osteoarthritis Osteopenia Shoulder pain, bilateral Shoulder pain, left Type 2 diabetes mellitus Surgical History H/O colonoscopy Family History Father No problems noted. Mother Stroke Social History Household Members: Significant Other Housing: Apartment Do you presently have visiting nurse or other home services: No Alcohol intake: never Patient Tobacco Use Status: Never used Tobacco e-Cigarette/Vaping Use: Never Used service: No Current occupational status: retired Cognitive needs: No Hearing needs: No Vision needs: Yes Review of Systems Const Details: Constitutional : No Weight loss, No Fever, No Chills, + Fatigue, + Malaise ENT/Mouth : No sore throat, No Rhinorrhea Eyes: No Eye Pain, No Swelling, No Redness Cardiovascular : No Chest Pain, No SOB, No Dyspnea on Exertion, No Orthopnea, No Edema, No Palpitations Respiratory : No Cough, No Sputum, No Wheezing Gastrointestinal : No Nausea, No Vomiting, No Diarrhea, No Constipation, No abdominal Pain, No Hematochezia, No Melena Genitourinary : No Dysuria, No Urinary Frequency, No Hematuria, Musculoskeletal : No joint pain, No Myalgias, No Joint Swelling Skin : No Skin Lesions, No rash Neuro : No Weakness, No Numbness, No Dizziness, No Headache Psych : No Anxiety/Panic, No Depression= All other systems reviewed and are negative All systems reviewed & are unremarkable except as noted in HPI and below Physical Exam Vital Signs: Last Vital Signs Temp 97.2 F 11/12/22 13:06 Pulse 64 11/12/22 13:06 BP 132/64 11/12/22 13:06 Pulse Ox 99 11/12/22 13:06 Oxygen Delivery Method Room Air 11/12/22 13:06 BMI result Body Mass Index 28.0 vss Appearance: Alert.? Oriented X3.? No acute distress.? Head: Normocephalic, atraumatic, no step-offs or deformities Eyes: Pupils equal, round and reactive to light.? CVS: Normal heart rate and rhythm.? Pulses normal.? Respiratory: No respiratory distress.? Breath sounds normal.? Abdomen: Soft and nontender.? Skin: Skin warm and dry.? Normal skin color.? Normal skin turgor.? Extremities: No lower extremity edema.? No calf ttp. 5/5 strength to bilateral upper and lower extremities Back: No midline tenderness, no C-spine tenderness, full range of motion, no CVA tenderness bilaterally Neuro: Oriented X 3.? No motor deficit.? No sensory deficit. CN 2-12 intact . Ambulating with steady gait normal coordination. Normal [id number], dexq-ix-tucs, steady tandem gait. Office Procedures EKG Details: Ventricular rate 88, MI normal, QRS normal, QT/QTC normal. No ST elevations or inversions concerning for acute ischemic [id number], Complete Assessment & Plan Assessment & Plan (1) Fatigue: Code(s): R53.83 - Other fatigue Plan Take your medications as prescribed. If you were prescribed antibiotics today, it is important that you take your medication to their entirety, do not skip any doses, do not finish them early. Follow-up with your primary care provider this week. Return to the emergency department with new or worsening symptoms. Such as fevers, chills, chest pain, shortness of breath, nausea, vomiting, dizziness, headache, vision changes, lethargy In case of emergency call 911 Orders: Orders Basic Metabolic Panel Today R5.83 - Other fatigue Complete Blood Count Auto Diff Today R5.83 - Other fatigue Coding Level of Care Code Est Pt Level 3 (55951) Diagnoses Fatigue CPT Codes EKG - CPT: 93349-[id number], Complete ([id number])
[2022-11-12 13:06] VITALS: BP 132/64; PULSE 64; TEMP 36.2; O2SAT 99; BMI 28.0
== END 2022-11-12 14:07 | disposition home or self-care (01) ==
PROVIDERS: PCP Internal Medicine; Visit Provider Physician Assistant
DX: R53.83 Other fatigue (principal)
CPT/HCPCS: 93000; 99213

== ENCOUNTER 2022-11-14 08:33 | Outpatient (REF) | payer MEDICARE, MEDICAID, SELFPAY ==
[2022-11-14 11:40] LABS: MANUAL DIFF FLAG NO
[2022-11-14 11:41] LABS: Basophils Absolute Auto 0.1 X10*3/uL (0.0-0.2); Eosinophils Absolute Auto 0.2 X10*3/uL (0.0-0.4); Eosinophils Percent Auto 3.9 % (0-4); Hematocrit 39.4 % (37.0-47.0); Hemoglobin 12.5 g/dl (12.0-16.0); Imm Gran Abs Auto 0.02 X10*3/uL (0.00-0.03); Imm Gran Pct Auto 0.3 % (0.0-0.4); Lymphocytes Percent Auto 33.3 % (20-40); Mean Corpuscular HGB Conc 31.7 g/dl (31.0-35.0); Mean Corpuscular Hemoglobin 27.4 pg (27.0-33.0); Mean Corpuscular Volume 86.4 fL (80.0-98.0); Mean Platelet Volume 9.9 fL (9.4-12.3); Monocytes Absolute Auto 0.4 X10*3/uL (0.1-1.2); Monocytes Percent Auto 7.3 % (2-11); Neutrophils Absolute Auto 3.2 x10*3/uL (2.0-8.3); Neutrophils Percent Auto 54.2 % (45-73); Platelet Count 356 X10*3/uL (160-400); Red Blood Count 4.56 X10*6/uL (4.20-5.50); Red Cell Distribution Width 13.2 % (11.0-16.0); White Blood Count 5.9 X10*3/uL (4.8-10.8)
[2022-11-14 12:01] LABS: Estimated Average Glucose 117 mg/dL; Hemoglobin A1c % 5.7 % (<6.0)
[2022-11-14 12:45] LABS: Alanine Aminotransferase 27 U/L (0-31); Albumin Level 4.3 g/dL (3.5-5.0); Alkaline Phosphatase 80 U/L (39-117); Anion Gap 13 (12-20); Aspartate Amino Transferase 32 U/L (5-31); Bilirubin Total 0.4 mg/dL (0.0-1.0); Blood Urea Nitrogen 23 mg/dL (9-16); Calcium 10.5 mg/dL (8.4-10.2); Carbon Dioxide 31 mmol/L (22-29); Chloride 99 mmol/L (96-108); Cholesterol 198 mg/dL (<200); Estimated Glomerular Filt Rate > 60; Glucose Fasting 102 mg/dL (60-99); HDL Cholesterol 49 mg/dL (>40); LDL Cholesterol Calculated 105 mg/dL (<100); Potassium 4.7 mmol/L (3.3-5.1); Sodium 138 mmol/L (135-145); Total Protein 7.4 g/dL (6.5-8.0); Triglycerides 222 mg/dL (<150)
[2022-11-14 12:54] LABS: Creatinine Urine 64.65 mg/dL; Microalbum/Creatinine Ratio Ur 18.5 ug/mg cr (<30)
== END 2022-11-14 08:34 | disposition home or self-care (01) ==
LOC: HO.HMGCLDS 08:33
PROVIDERS: PCP Internal Medicine; Visit Provider Internal Medicine
DX: E11.9 Type 2 diabetes mellitus without complications (principal); I10 Essential (primary) hypertension; E78.5 Hyperlipidemia, unspecified
CPT/HCPCS: 36415; 80053; 80061; 82043; 83036; 85025

== ENCOUNTER 2022-11-22 09:42 | Outpatient (AMB) | payer MEDICARE, MEDICAID, SELFPAY ==
--- NOTE | 2022-11-22 09:59 | MHC.PC.OV ---
Vital Signs 11/22/22 10:11 Height 5 ft 4 in Weight 159 lb BMI 27.3 BP 136/66 Blood Pressure Location Lt brachial Position Sitting Pulse 91 Pulse Source Pulse Oximeter Pulse Oximetry (%) 97 Oxygen Delivery Method Room Air Intake Visit Reasons: 3 Month follow up DM Intake Note: Pt is here today for a 3 months follow up visit on DM. Pt states that she has been having diarrhea for 3 weeks now. Allergies penicillin G Allergy (Severe, Verified 11/22/22 10:15) SOB throuble breathing penicillin V Allergy (Severe, Verified 11/22/22 10:15) SOB trouble breathing atorvastatin Allergy (Unknown, Verified 11/22/22 10:15) myalgia Penicillins Allergy (Unknown, Verified 11/22/22 10:15) SOB trouble breathing rosuvastatin [Crestor] Allergy (Unknown, Verified 11/22/22 10:15) myalgia Medication List - Last Reconciled 11/22/22 by Beronica Tapia MD ascorbic acid (vitamin C) (Vitamin C) 500 mg PO DAILY aspirin 325 mg PO DAILY blood sugar diagnostic ONE TOUCH ULTRA BLUE TEST STRIPS (new) 100 USE ONCE A DAY TO TEST BLOOD SUGARS. cholecalciferol (vitamin D3) (Vitamin D3) 25 mcg PO DAILY compr.stocking,thigh,reg,large 15-20 mmHg ezetimibe 10 mg PO DAILY fenofibrate 160 mg PO DAILY furosemide 20 mg PO Q OTHER DAY gabapentin 600 mg PO BID losartan 100 mg PO DAILY metformin 1,000 mg (2 x 500 mg) PO DAILY nifedipine ER 30 mg PO DAILY olopatadine 0.1% 1 drp ophthalmic (eye) BID PRN omeprazole 1 cap PO DAILY PRN triamterene-hydrochlorothiazid 37.5-25 mg 1 cap PO DAILY Tobacco use date assessed: 11/22/22 Fall risk assessment: No Falls in past year Last assessed Fall Risk: 11/22/22 Dental Screening Dental Screen Date: 11/22/22 Did you have a dental visit in the last 12 months?: Yes Did you have a dental problem in the last 6 months where you did not have access to dental care?: No Was dental information given to patient?: Patient has dentist HPI 3 Month follow up DM HPI Details Patient presents for the follow-up on hypertension hyperlipidemia type 2 diabetes. Patient reports diarrhea for the last 2 weeks watery worse after eating. She denies fever chills hematochezia melena or weight loss. Patient reports low blood glucose and has not been taking metformin regularly. [facility] Medical History Annual physical exam Claudication DJD (degenerative joint disease), cervical Foot pain, bilateral H. pylori infection Hip pain, right HTN (hypertension) Hx of bone density study Hyperlipidemia Lower back pain Osteoarthritis Osteopenia Shoulder pain, bilateral Shoulder pain, left Type 2 diabetes mellitus Surgical History H/O colonoscopy Family History Father No problems noted. Mother Stroke Social History Household Members: Significant Other Housing: Apartment Do you presently have visiting nurse or other home services: No Alcohol intake: never Patient Tobacco Use Status: Never used Tobacco e-Cigarette/Vaping Use: Never Used service: No Current occupational status: retired Cognitive needs: No Hearing needs: No Vision needs: Yes Questionnaire Thrive Questionnaire Date Thrive assessed: 04/25/22 AUDIT C Alcohol Use Questionnaire (AUDIT-C) 1. How often do you have a drink containing alcohol?: Never 3. How often do you have six or more drinks on one occasion?: Never Total Score: 0 SHOSHANA-7 AMB Questionnaire SHOSHANA-7 Date SHOSHANA - 7 assessed: 04/25/22 Source: Developed by Drs. Jaquan Damon, Gabriela Garduno, Benja Sylvester and colleagues, with an educational julian from [employer]. Review of Systems Const All systems reviewed & are unremarkable except as noted in HPI and below Reports no additional complaints Eyes Reports no additional complaints ENT Reports no additional complaints Card Reports no additional complaints Resp Reports no additional complaints GI Reports no additional complaints Reports no additional complaints Physical exam (Primary Care) Vital Signs: Last Vital Signs Pulse 91 11/22/22 10:11 BP 136/66 11/22/22 10:11 Pulse Ox 97 11/22/22 10:11 Oxygen Delivery Method Room Air 11/22/22 10:11 BMI result Body Mass Index 27.3 Tobacco/Smoking Status: Tobacco use Status Tobacco use date assessed 11/22/22 11/22/22 10:19 Patient Tobacco Use Status Never used Tobacco 11/22/22 10:19 e-Cigarette/Vaping Use Never Used 11/22/22 09:59 Thrive Assessment: Date of Thrive Assessment Date Thrive assessed 04/25/22 11/22/22 09:59 Const General: no acute distress HENMT Head: Yes normal to inspection Throat: Yes posterior oropharynx normal Neck Neck: Yes supple Resp Effort & Inspection: normal respiratory effort Auscultation: clear to auscultation bilaterally Cardio Rhythm: regular rhythm Heart sounds: S1 normal heart sound present and S2 normal heart sound present GI Inspection: Yes normal to inspection Palpation (GI): Soft to palpation Percussion: Yes normal to percussion Auscultation: normal bowel sounds Assessment and Plan Assessment & Plan (1) Diarrhea: Code(s): R19.7 - Diarrhea, unspecified Plan: check GI panel , C DIFF and H pylori, supportive care discussed with the patient. (2) HTN (hypertension): Comment: BP < 130/80 Code(s): I10 - Essential (primary) hypertension Plan: Continue current medications (3) Type 2 diabetes mellitus: Comment: A1C <6.5 Code(s): E11.9 - Type 2 diabetes mellitus without complications Plan: A1c is down to 5.7, continue ADA diet, follow-up in 3 months or p.r.n. Orders: Orders H pylori Ag Stool Today R19.7 - Diarrhea, unspecified CDiff Gene PCR Today R19.7 - Diarrhea, unspecified Lipid Panel 3 Months E11.9 - Type 2 diabetes mellitus without complications, E78.5 - Hyperlipidemia, unspecified, I10 - Essential (primary) hypertension GI Panel Today R19.7 - Diarrhea, unspecified Comprehensive [place]. Panel Fast 3 Months E11.9 - Type 2 diabetes mellitus without complications, E78.5 - Hyperlipidemia, unspecified, I10 - Essential (primary) hypertension Complete Blood Count Auto Diff 3 Months E11.9 - Type 2 diabetes mellitus without complications, E78.5 - Hyperlipidemia, unspecified, I10 - Essential (primary) hypertension Hemoglobin A1c 3 Months E11.9 - Type 2 diabetes mellitus without complications, E78.5 - Hyperlipidemia, unspecified, I10 - Essential (primary) hypertension Microalbumin, Random (w Creat) 3 Months E11.9 - Type 2 diabetes mellitus without complications, E78.5 - Hyperlipidemia, unspecified, I10 - Essential (primary) hypertension Coding Level of Care Code Est Pt Level 4 (44534) Diagnoses Diarrhea R19.7 HTN (hypertension) I10 Type 2 diabetes mellitus E11.9
[2022-11-22 10:11] VITALS: BP 136/66; PULSE 91; O2SAT 97; BMI 27.3
== END 2022-11-22 10:59 | disposition home or self-care (01) ==
PROVIDERS: PCP Internal Medicine; Visit Provider Internal Medicine
DX: R19.7 Diarrhea, unspecified (principal); I10 Essential (primary) hypertension; E11.9 Type 2 diabetes mellitus without complications
CPT/HCPCS: 99214

== ENCOUNTER 2022-11-25 09:15 | Outpatient (REF) | payer MEDICARE, MEDICAID, SELFPAY ==
[2022-11-25 14:10] LABS: CDiff Gene PCR POSITIVE (Negative)
[2022-11-25 15:24] LABS: CDIFF Internal ctrl Dots and bkg OK (V)
[2022-11-25 15:28] LABS: CDiff Toxin Negative (Negative)
[2022-11-25 16:10] LABS: Adenovirus F 40/41 Not Detected (Not Detect.); Astrovirus Not Detected (Not Detect.); Campylobacter Not Detected (Not Detect.); Cryptosporidium Not Detected (Not Detect.); Cyclospora cayetanensis Not Detected (Not Detect.); E. coli EAEC Not Detected (Not Detect.); E. coli EPEC Not Detected (Not Detect.); E. coli ETEC Not Detected (Not Detect.); E. coli STEC Not Detected (Not Detect.); Entamoeba histolytica Not Detected (Not Detect.); Giardia lamblia Not Detected (Not Detect.); Norovirus GI/GII Not Detected (Not Detect.); Plesiomonas shigelloides Not Detected (Not Detect.); Rotavirus A Not Detected (Not Detect.); Salmonella Not Detected (Not Detect.); Sapovirus Not Detected (Not Detect.); Shigella sp./EIEC Not Detected (Not Detect.); Vibrio Not Detected (Not Detect.); Vibrio Cholerae Not Detected (Not Detect.); Yersinia enterocolitica Not Detected (Not Detect.)
== END 2022-11-25 09:16 | disposition home or self-care (01) ==
LOC: HO.HMGCLNP 09:15
PROVIDERS: PCP Internal Medicine; Visit Provider Internal Medicine
DX: R19.7 Diarrhea, unspecified (principal)
CPT/HCPCS: 87324; 87338; 87493; 87507

== ENCOUNTER 2024-09-20 08:41 | Outpatient (REF) | payer MEDICARE, MEDICAID, SELFPAY ==
--- OUTSIDE RECORDS SUMMARY | 2024-09-20 08:54 | XMS_ITS | Clinical Summary ---
Author Organization [facility] Facility Address [address] [place] [id number] Care Team Providers Care Research Quality Assurance Specialist Name Role Phone Beronica Tapia MD Primary Care Provider [phone] Social History Tobacco Use Types Packs/Day Years Used Date Smoking Tobacco: Never Assessed Comments Unknown Sex and Gender Information Value Date Recorded Sex Assigned at Not on file Legal Sex Female 9:06 AM EDT Gender Identity Not on file Sexual Orientation Not on file Plan of Treatment Health Maintenance Due Date Last Done Comments Breast Cancer Screening 1950 Colorectal Cancer Screening: Annual FOBT 08/12/1999 Colorectal Cancer Screening: Colonoscopy 08/12/1999 Colorectal Cancer Screening: Sigmoidoscopy 08/12/1999 Pneumococcal Vaccine: 50+ Ye ars (1 of - PCV) 2000 Influenza Vaccine (Season Ended) 2024 Hepatitis B Vaccine Aged Out No longe r eligible based on patient's age to complete this topic Insurance Medicare Medicaid [place] Medicare Medicaid [place] Care Teams Research Quality Assurance Specialist Relationship Specialty Start Date End Date Beronica Tapia MD [address] [place] [address] PCP - General Internal Medicine 08/01/21
--- OUTSIDE RECORDS SUMMARY | 2024-09-20 08:54 | XMS_ITS | Encounter Summary ---
Author Organization [employer] Address [address] [place] [address] [address] [place] [address] Care Team Providers Care Monotype Keyboard Operator Name Role Phone Unavailable Primary Care Provider Unavailabl e Reason for Visit * Reason Onset Date Comments serenity patient 07/16/2024 Encounter Details Date Type Department Care Team ( Contact Info) Description 07/16/2024 Telephone [facility] [address] [place] [address] Anup Forde serenity patient Social History Tobacco Use Types Packs/Day Years Used Date Smoking Tobacco: Former Cigarettes Passive Smoke Exposure: Never Smokeless Tobacco: Never Comments Unknown Sex and Gender Information Value Date Recorded Sex Assigned at Female 02/11/2023 1:49 PM EST Legal Sex Female 1:48 PM EST Gender Identity Choose not to disclose 1:49 PM EST Sexual Orientation Don't know 02/11/2023 1: 49 PM EST documented as of this encounter Miscellaneous Notes * Telephone Encounter - Mary Estes - 07/16/2024 12:42 PM EDT Appt mistakenly scheduled. Patient is serenity Pace patient scheduled only by Karine in [facility]. Explained to patient that I would have to cancel the appt and office would get in touch to schedule next week due to patient being a serenity patient. Patient was confused as to why the wait. Explained that I would leave the appt scheduled and reach to the person that does set up serenity pace appts and ifany changes are needed she will reach out once she is back in office. DR Karine Galvez added to note Email sent to Karine ABDI documented in this encounter Plan of Treatment Upcoming Encounters Date Type Department Care Team (Late Contact Info) Description 02/08/2025 10:00 AM EST Office Visit [facility] [address] [place] [address] Anup Forde documented as of this encounter Visit Diagnoses Not on filedocumented in this encounter
--- OUTSIDE RECORDS SUMMARY | 2024-09-20 08:54 | XMS_ITS | Clinical Summary ---
Author Organization [facility] Address [address] [place] [phone] Phone Care Team Providers Care Paper Coating Supervisor Name Role Phone Darren Darnell MD Primary Care Provider + Encounters Date Type Department Care Team Description 07/13/2024 1:45 PM EDT - 07/13/2024 11:59 PM EDT Hospital Encounter [facility] [address] [phone] Encounter for screening mammogram for breast cancer Discharge Disposition: Home or Self Care from Last 3 Months Social History Tobacco Use Types Packs/Day Years Used Date Smoking Tobacco: Never Assessed Comments No Sex and Gender Information Value Date Recorded Sex Assigned at Female 07/05/2024 11:21 AM EDT Legal Sex Female 9:37 AM EST Gender Identity Female 07/05/2024 11:21 AM EDT Sexual Orientation Straight 07/05/2024 11 :21 AM EDT Obstetrics History Para Term AB IAB SAB Ectopic Multiple Livin g Live Births 3 Last Filed Vital Signs Vital Sign Reading Time Taken Comments Blood Pressure - - Pulse - - Temperature - - Respiratory Rate - - Oxygen Saturation - - Inhaled Oxygen Concentration - - Weight 77.1 kg (170 lb) 07/13/2024 2:20 PM EDT Height 160 cm (5' 3 ) 07/13/2024 2:20 PM EDT Body Mass Index 30.11 07/13/2024 2:20 PM EDT Plan of Treatment Upcoming Encounters Date Type Department Care Team (Late st Contact Info) Description 07/14/2025 10:00 AM EDT Appointment [facility] [address] [phone] Health Maintenance Due Date Last Done Comments DTaP,Tdap,and Td Vaccines (1 - Tdap) 1969 Hepatitis A Vaccines (1 of 2 - Risk 2-dose series) 1969 Pneumococcal Vaccine: 50+ Years (1 of 1 - PCV) 2000 Hepatitis B Vaccines (1 of 3 - Risk 3-dose series) 2010 RSV Immunization Adult Patients (1 - Risk 60-74 years 1-dose series) 2010 Cholesterol Screening (Lipid Panel) 02/17/2022 Colorectal Cancer Screening: Colonoscopy 02/17/2022 Depression Screening 02/17/2022 Falls Risk Assessment 02/17/2022 Hepatitis C Screening 02/17/2022 Medicare Annual Wellness Visit 02/17/2022 Osteoporosis Screening (Bone Density Screening) 02/17/2022 Social Influencers of Health Screening 02/17/2022 COVID-19 Vaccine ( season) 2023 Hypertension/CHF/CAD Annual BMP Blood Test 06/29/2024 Zoster Vaccines (2 of 2) 07/12/2024 05/17/2024 Influenza Vaccine (#1) 2024 Breast Cancer Screening 07/13/2026 07/14/19 25, 06/24/2023, 06/06/2022, Additional history exists HIB Vaccines Aged Out No longer eligi ble based on patient's age to complete this topic HPV Vaccines Aged Out No longer eligi ble based on patient's age to complete this topic IPV Vaccines Aged Out No longer eligi ble based on patient's age to complete this topic MMR Vaccines Aged Out No longer eligi ble based on patient's age to complete this topic Meningococcal ACWY Vaccine Aged Out N o longer eligible based on patient's age to complete this topic Meningococcal B Vaccine Aged Out No l onger eligible based on patient's age to complete this topic RSV Immunization Patients Under 20 months Aged Out No longer eligible based on patient's age to complete this topic Varicella Vaccines Aged Out No longer eligible based on patient's age to complete this topic Procedures Procedure Name Priority Date/Time Associated Diagnosis Comments MG MAMMO DIGITAL SCREENING W APOLLO BILAT Routine 07/13/2024 2:21 PM EDT Encounter for screening mammogram for breast cancer from Last 3 Months Results * MG Mammo Digital Screening w Apollo bilat (07/13/2024 2:21 PM EDT) Anatomical Region Laterality Modality Breast Bilateral Mammography 07/13/2024 3:44 PM EDT Impressions 07/13/2024 3:53 PM EDT No evidence of breast malignancy. BI-RADS CATEGORY: 1 - NEGATIVE RECOMMENDATION: Screening bilateral mammogram is recommended in 1 year. Mammo Location: [facility], [address] [place] [address], [id number], . -------- FINAL REPORT -------- Dictated By: Liberty Kong Dictated Date: 07/13/2024 15:44 ET Assigned Physician: Liberty Kong Reviewed and Electronically Signed By: Liberty Kong Signed Date: 07/13/2024 15:53 ET Workstation ID: [id number] Transcribed By: Self Edit Transcribed Date: 07/13/2024 15:44 ET Narrative 07/13/2024 3:53 PM EDT CLINICAL: 73 years old, Female, routine annual exam. COMPARISON: 06/24/2023, 06/06/2022, 06/04/2021, 02/24/2020, 07/16/2018 TECHNIQUE: Bilateral MLO and CC views were obtained digitally with 3-D mammogram (digital breast tomosynthesis). Computer-aided detection was utilized in evaluation of this exam (CAD). FINDINGS: There is no evidence of suspicious mass or architectural distortion. No worrisome calcifications are evident. There has been no significant change from prior exam(s). BREAST DENSITY: B - There are scattered areas of fibroglandular density. Procedure Note Liberty Kong MD - 07/13/2024 CLINICAL: 73 years old, Female, routine annual exam. COMPARISON: 06/24/2023, 06/06/2022, 06/04/2021, 02/24/2020, 07/16/2018 TECHNIQUE: Bilateral MLO and CC views were obtained digitally with 3-Dmammogram (digital breast tomosynthesis). Computer-aided detection wasutilized in evaluation of this exam (CAD). FINDINGS: There is no evidence of suspicious mass or architectural distortion. Noworrisome calcifications are evident. There has been no significantchange from prior exam(s). BREAST DENSITY: B - There are scattered areas of fibroglandular density. IMPRESSION: No evidence of breast malignancy. BI-RADS CATEGORY: 1 - NEGATIVE RECOMMENDATION: Screening bilateral mammogram is recommended in 1 year. Mammo Location: [facility], [address] [place] [address], [id number], . -------- FINAL REPORT -------- Dictated By: Liberty Kong Dictated Date: 07/13/2024 15:44 ET Assigned Physician: Liberty Kong Reviewed and Electronically Signed By: Liberty Kong Signed Date: 07/13/2024 15:53 ET Workstation ID: [id number] Transcribed By: Self Edit Transcribed Date: 07/13/2024 15:44 ET us Self Referral Sppl IMG BI PROCEDURES Final Resul t from Last 3 Months Insurance MEDICARE ADVANTAGE [employer] [id number] Care Teams Paper Coating Supervisor Relationship Specialty Start Date End Date Darren Darnell MD [address] [place] [phone] PCP - General Internal Medicine 07/05/24
[2024-09-20 10:47] LABS: MANUAL DIFF FLAG NO
[2024-09-20 10:59] LABS: Hematocrit 39.7 % (37.0-47.0); Hemoglobin 13.0 g/dl (12.0-16.0); Imm Gran Abs Auto 0.05 X10*3/uL (0.00-0.03); Imm Gran Pct Auto 0.7 % (0.0-0.4); Lymphocytes Absolute Auto 2.4 X10*3/uL (1.2-4.9); Mean Corpuscular HGB Conc 32.7 g/dl (31.0-35.0); Mean Corpuscular Hemoglobin 27.5 pg (27.0-33.0); Mean Corpuscular Volume 84.1 fL (80.0-98.0); NRBC Abs Auto 0.000 X10*3/uL (0.0-0.012); NRBC Pct Auto 0.0 /100WBC (0.0-0.2); Platelet Count 278 X10*3/uL (160-400); Red Blood Count 4.72 X10*6/uL (4.20-5.50); White Blood Count 7.1 X10*3/uL (4.8-10.8)
[2024-09-20 11:03] LABS: Hemoglobin A1C 180.6273 umol/L; Total Hemoglobin (HGBA1C) 3338.2390 umol/L
[2024-09-20 12:52] LABS: Anion Gap 14 (12-20)
[2024-09-20 13:00] LABS: Alanine Aminotransferase 39 U/L (0-31); Albumin Level 4.4 g/dL (3.5-5.0); Alkaline Phosphatase 74 U/L (39-117); Aspartate Amino Transferase 39 U/L (5-31); Blood Urea Nitrogen 18 mg/dL (9-16); Calcium 9.8 mg/dL (8.4-10.2); Carbon Dioxide 28 mmol/L (22-29); Chloride 103 mmol/L (96-108); Cholesterol 177 mg/dL (<200); Estimated Glomerular Filt Rate 59; HDL Cholesterol 54 mg/dL (>40); Potassium 4.7 mmol/L (3.3-5.1); Sodium 140 mmol/L (135-145); Total Protein 7.0 g/dL (6.5-8.0); Triglycerides 148 mg/dL (<150)
[2024-09-20 14:53] LABS: Microalbum/Creatinine Ratio Ur 71.0 ug/mg cr (<30)
== END 2024-09-20 08:42 | disposition home or self-care (01) ==
LOC: HO.HMGCLDS 08:41
PROVIDERS: PCP Internal Medicine; Visit Provider Internal Medicine
DX: E11.9 Type 2 diabetes mellitus without complications (principal); E55.9 Vitamin D deficiency, unspecified; E78.5 Hyperlipidemia, unspecified; I10 Essential (primary) hypertension
CPT/HCPCS: 36415; 80053; 80061; 82043; 82570; 83036; 84443; 85025

== ENCOUNTER 2024-09-23 11:44 | Outpatient (AMB) | payer MEDICARE, MEDICAID, SELFPAY ==
--- NOTE | 2024-09-23 11:49 | MHC.PC.OV ---
Vital Signs 09/23/24 11:50 Height 5 ft 4 in Weight 169 lb BMI 29.0 BP 134/64 Blood Pressure Location Lt brachial Position Sitting Respiration 18 Pulse 91 Pulse Source Pulse Oximeter Temp 98.2 F Temp Source Oral Pulse Oximetry (%) 98 Oxygen Delivery Method Room Air Intake Visit Reasons: Follow up complex Intake Note: Pt is here today for a follow up visit. Allergies penicillin G Allergy (Severe, Verified 09/23/24 11:56) SOB throuble breathing penicillin V Allergy (Severe, Verified 09/23/24 11:56) SOB trouble breathing atorvastatin Allergy (Unknown, Verified 09/23/24 11:56) myalgia Penicillins Allergy (Unknown, Verified 09/23/24 11:56) SOB trouble breathing rosuvastatin (Crestor) Allergy (Unknown, Verified 09/23/24 11:56) myalgia Medication List - Last Reconciled 09/23/24 by Beronica Tapia MD ascorbic acid (vitamin C) (Vitamin C) 500 mg PO DAILY blood sugar diagnostic ONE TOUCH ULTRA BLUE TEST STRIPS (new) 100 USE ONCE A DAY TO TEST BLOOD SUGARS. cholecalciferol (vitamin D3) (Vitamin D3) 25 mcg PO DAILY compr.stocking,thigh,reg,large 15-20 mmHg ezetimibe 10 mg PO DAILY fenofibrate 160 mg PO DAILY furosemide 20 mg PO Q OTHER DAY losartan 100 mg PO DAILY metformin 1,000 mg (2 x 500 mg) PO DAILY nifedipine ER 30 mg PO DAILY olopatadine 0.1% 1 drp ophthalmic (eye) BID PRN omeprazole 1 cap PO DAILY PRN triamterene-hydrochlorothiazid 37.5-25 mg 1 cap PO DAILY vancomycin 250 mg PO QID Tobacco use date assessed: 09/23/24 Fall risk assessment: 1 Fall in past year Last assessed Fall Risk: 09/23/24 Dental Screening Dental Screen Date: 09/23/24 Did you have a dental visit in the last 12 months?: No Did you have a dental problem in the last 6 months where you did not have access to dental care?: No Was dental information given to patient?: Patient declined HPI Follow up complex HPI Details Pt presents for f/u DM 2, HTN, hyperlipid, stable on meds. Patient has [facility] in the [facility] 2 years but decided to change. Patient complains of bilateral legs pain worse at night and urgency to move them which affects her sleep quality [facility] Medical History (Updated 09/23/24 @ 12:31 by Beronica Tapia MD) Shoulder pain, bilateral H. pylori infection DJD (degenerative joint disease), cervical Shoulder pain, left Annual physical exam Hip pain, right Foot pain, bilateral Hx of bone density study Osteopenia Type 2 diabetes mellitus Osteoarthritis Hyperlipidemia HTN (hypertension) Lower back pain Surgical History Hx of cataract surgery H/O colonoscopy Family History Father No problems noted. Mother Stroke Social History Household Members: Significant Other Housing: Apartment Do you presently have visiting nurse or other home services: No Alcohol intake: never Patient Tobacco Use Status: Never used Tobacco e-Cigarette/Vaping Use: Never Used service: No Current occupational status: retired Cognitive needs: No Hearing needs: No Vision needs: Yes Questionnaire PHQ-9 Over the last 2 weeks, how often have you been bothered by any of the following problems? 1. Little interest or pleasure in doing things: not at all 2. Feeling down, depressed, or hopeless: not at all 3. Trouble falling or staying asleep, or sleeping too much: not at all 4. Feeling tired or having little energy: not at all 5. Poor appetite or overeating: not at all 6. Feeling bad about yourself - or that you are a failure or have let yourself or your family down: not at all 7. Trouble concentrating on things, such as reading the newspaper or watching television: not at all 8. Moving or speaking so slowly that other people could have noticed. Or the opposite - being so fidgety or restless that you have been moving around a lot more than usual: not at all 9. Thoughts that you would be better off or of hurting yourself in some way: not at all Total score: 0 Depression Screening Interpretation: Negative Depression Screening Done: Yes 58331 - PHQ-9 Billing: Yes Source: Developed by Drs. Jaquan Damon, Gabriela Garduno, Benja Sylvester and colleagues, with an educational julian from [facility]. Thrive Questionnaire Date Thrive assessed: 09/23/24 I am a: Patient What is your living situation today?: I have a steady place to live Within the past 12 months, did the food you bought not last and you didn't have the money to get more?: Never true Within the past 12 months, did you worry whether your food would run out before you got money to buy more?: Never true Do you have trouble paying for medicines?: No Do you have trouble getting transportation to medical appointments?: No Do you have trouble paying your heating and electricity bill?: No Do you have trouble taking care of your child, family member or friend?: No Do you have trouble with day-to-day activities such as bathing, preparing meals, shopping, managing finances, etc.?: No Are you currently unemployed and looking for a job?: No Are you interested in more education?: No Please select the resources that you would like help with: None THRIVE Score: 0 AUDIT C Alcohol Use Questionnaire (AUDIT-C) 1. How often do you have a drink containing alcohol?: Never 3. How often do you have six or more drinks on one occasion?: Never Total Score: 0 SHOSHANA-7 AMB Questionnaire SHOSHANA-7 Date SHOSHANA - 7 assessed: 09/23/24 Feeling nervous, anxious, or on edge: 0 = Not at all Not being able to stop or control worryin = Not at all Worrying too much about different things: 0 = Not at all Trouble relaxin = Not at all Being so restless that it is hard to sit still: 0 = Not at all Becoming easily annoyed or irritable: 0 = Not at all Feeling afraid as if something awful might happen: 0 = Not at all Total SHOSHANA-7 score (0-4 normal; 5-9 mild; 10-14 moderate; 15-21 severe): 0 Source: Developed by Drs. Jaquan Damon, Gabriela Garduno, Benja Sylvester and colleagues, with an educational julian from [facility]. SHOSHANA-7 Assessment Billing SHOSHANA-7 Assessment Tool: SHOSHANA-7 Assessment 68310 Review of Systems Const All systems reviewed & are unremarkable except as noted in HPI and below Eyes Reports no additional complaints ENT Reports no additional complaints Card Reports no additional complaints GI Reports no additional complaints Reports no additional complaints Physical exam (Primary Care) Vital Signs: Last Vital Signs Temp 98.2 F 09/23/24 11:50 Pulse 91 09/23/24 11:50 Resp 18 09/23/24 11:50 BP 134/64 09/23/24 11:50 Pulse Ox 98 09/23/24 11:50 Oxygen Delivery Method Room Air 09/23/24 11:50 BMI result Body Mass Index 29.0 Tobacco/Smoking Status: Tobacco use Status Tobacco use date assessed 09/23/24 09/23/24 11:58 Patient Tobacco Use Status Never used Tobacco 09/23/24 11:50 e-Cigarette/Vaping Use Never Used 09/23/24 11:50 PHQ-9: PHQ-9 Score PHQ-9: Total score 0 09/23/24 11:58 Depression Screening Interpretation: Negative Thrive Assessment: Date of Thrive Assessment Date Thrive assessed 09/23/24 09/23/24 11:58 Const General: no acute distress HENMT Head: Yes normal to inspection Face and sinus: Yes normal facial exam Mouth: Normal oral and palatal mucosa present Eyes General: appearance normal, both eyes and all related structures Neck Neck: Yes no lymphadenopathy and Yes supple Resp Effort & Inspection: normal respiratory effort Auscultation: clear to auscultation bilaterally Cardio Rhythm: regular rhythm Heart sounds: S1 normal heart sound present and S2 normal heart sound present GI Inspection: Yes normal to inspection Palpation (GI): Soft to palpation Percussion: Yes normal to percussion Auscultation: normal bowel sounds Extrem General: Yes no clubbing, cyanosis or edema Coding Level of Care Code Est Pt Level 4 (34974) Complex EM visit Add On G2211 Diagnoses HTN (hypertension) I10 Type 2 diabetes mellitus E11.9 RLS (restless legs syndrome) G25.81 Sciatica M54.30 Vitamin D deficiency E55.9 Additional Codes SHOSHANA-7 Assessment Billing - SHOSHANA-7 Assessment Tool: SHOSHANA-7 Assessment 26882 ([id number]) PHQ-9 - 16442 - PHQ-9 Billing: Yes ([id number]) Assessment & Plan Assessment & Plan (1) HTN (hypertension): Comment: BP < 130/80 Code(s): I10 - Essential (primary) hypertension Category: Medical Plan: cont meds (2) Type 2 diabetes mellitus: Comment: A1C <6.5 Code(s): E11.9 - Type 2 diabetes mellitus without complications Category: Medical Plan: A1c is 7.1, ADA diet, increase physical activity, add Ozempic 0.25 mg q week, f/u 3 months (3) RLS (restless legs syndrome): Code(s): G25.81 - Restless legs syndrome Category: Medical Plan: start Ropinirole (4) Sciatica: Code(s): M54.30 - Sciatica, unspecified side Category: Medical Plan: Patient will schedule an appointment for physical therapy for chronic sciatica (5) Vitamin D deficiency: Code(s): E55.9 - Vitamin D deficiency, unspecified Category: Medical Plan: Continue vitamin-D supplement Orders: Orders Hemoglobin A1c 3 Months E11.9 - Type 2 diabetes mellitus without complications, E55.9 - Vitamin D deficiency, unspecified, I10 - Essential (primary) hypertension Microalbumin, Random (w Creat) 3 Months E11.9 - Type 2 diabetes mellitus without complications, E55.9 - Vitamin D deficiency, unspecified, I10 - Essential (primary) hypertension Comprehensive Greene. Panel Fast 3 Months E11.9 - Type 2 diabetes mellitus without complications, E55.9 - Vitamin D deficiency, unspecified, I10 - Essential (primary) hypertension Vitamin B12 and Folate 3 Months E11.9 - Type 2 diabetes mellitus without complications, E55.9 - Vitamin D deficiency, unspecified, I10 - Essential (primary) hypertension Lipid Panel 3 Months E11.9 - Type 2 diabetes mellitus without complications, E55.9 - Vitamin D deficiency, unspecified, I10 - Essential (primary) hypertension IRON PROFILE 3 Months E11.9 - Type 2 diabetes mellitus without complications, E55.9 - Vitamin D deficiency, unspecified, I10 - Essential (primary) hypertension Vitamin D 25-OH Total 3 Months E11.9 - Type 2 diabetes mellitus without complications, E55.9 - Vitamin D deficiency, unspecified, I10 - Essential (primary) hypertension Medications: New ropinirole administer 1-3 hours before bedtime 0.5 mg PO BEDTIME 90 tabs 2RF semaglutide (Ozempic) 0.25 mg (0.368 mL) subcut QWEEK 3 mL 3RF Refilled blood sugar diagnostic ONE TOUCH ULTRA BLUE TEST STRIPS (new) 100 USE ONCE A DAY TO TEST BLOOD SUGARS. 100 ea 3RF E11.9 - Type 2 diabetes mellitus without complications Discontinued vancomycin Discontinued Reason: Doctor's Order 250 mg PO QID 40 caps 0RF
[2024-09-23 11:50] VITALS: BP 134/64; PULSE 91; RESP 18; TEMP 36.8; O2SAT 98; BMI 29.0
--- OUTSIDE RECORDS SUMMARY | 2024-09-23 12:18 | XMS_ITS | Encounter Summary ---
Author Organization [employer] Address [address] [place] [address] 7 [place] [address] Care Team Providers Care Transfer Agent Name Role Phone Unavailable Primary Care Provider Unavailabl e Reason for Visit * Reason Onset Date Comments serenity patient 07/16/2024 Encounter Details Date Type Department Care Team ( Contact Info) Description 07/16/2024 Telephone [facility] [address] [place] [address] Anup Forde serenity patient Social History Tobacco [...] Pace patient scheduled only by Karine in [facility]. Explained to patient that I would have [...] Description 02/08/2025 10:00 AM EST Office Visit [facility] ADULT DENTAL [address] [place] [address] Anup Forde documented as of this encounter Visit Diagnoses Not on filedocumented in this encounter
--- OUTSIDE RECORDS SUMMARY | 2024-09-23 12:18 | XMS_ITS | Clinical Summary ---
Author Organization [facility] Address [address] [place] [address] Care Team Providers Care Field Research Assistant Name Role Phone Beronica Tapia MD Primary Care Provider [phone] Social History Tobacco Use Types Packs/Day Years [...] Pneumococcal Vaccine: 50+ Ye ars (1 of 1 - PCV) 2000 Influenza Vaccine (#1) 2024 Hepatitis B Vaccine Aged Out No longe r eligible based on patient's age to complete this topic Insurance Medicare Medicaid [place] Medicare Medicaid [place] Care Teams Field Research Assistant Relationship Specialty Start Date End Date Beronica Tapia MD [address] [place] [address] PCP - General Internal Medicine 08/01/21
--- OUTSIDE RECORDS SUMMARY | 2024-09-23 12:18 | XMS_ITS | Clinical Summary ---
Author Organization [facility] Address [address] [place] [phone] Phone Care Team Providers Care [place] Name Role Phone Darren Darnell MD Primary Care Provider + Encounters Date Type Department Care Team Description 07/13/2024 1:45 PM EDT - 07/13/2024 11:59 PM EDT Hospital [facility]counter [facility] [address] [phone] Encounter for screening mammogram for [...] AM EDT Appointment [facility] [address] [phone] Health Maintenance Due Date Last [...] year. Mammo Location: [facility], [address] [place] [address], [phone], . -------- FINAL REPORT -------- Dictated By: Liberty Kong Dictated Date: 07/13/2024 15:44 ET Assigned Physician: Liberty Kong Reviewed and Electronically Signed By: Liberty Kong Signed Date: 07/13/2024 15:53 ET Workstation ID: [id number] Transcribed By: Self Edit Transcribed Date: 07/13/2024 [...] year. Mammo Location: [facility], [address] [place] [address], [phone], . -------- FINAL REPORT -------- Dictated By: Liberty Kong Dictated Date: 07/13/2024 15:44 ET Assigned Physician: Liberty Kong Reviewed and Electronically Signed By: Liberty Kong Signed Date: 07/13/2024 15:53 ET Workstation ID: [id number] Transcribed By: Self Edit Transcribed Date: 07/13/2024 15:44 ET us Self Referral Sppl IMG BI PROCEDURES Final Resul t from Last 3 Months Insurance MEDICARE ADVANTAGE GENERIC [place] [id number] Care Teams [place] Relationship Specialty Start Date End Date Darren Darnell MD [address] [place] [phone] PCP - General Internal Medicine 07/05/24
== END 2024-09-23 13:26 | disposition home or self-care (01) ==
LOC: HO.HMCC 11:44
PROVIDERS: PCP Internal Medicine; Visit Provider Internal Medicine
DX: I10 Essential (primary) hypertension (principal); E11.9 Type 2 diabetes mellitus without complications; G25.81 Restless legs syndrome; M54.30 Sciatica, unspecified side; E55.9 Vitamin D deficiency, unspecified

== ENCOUNTER → 2024-09-23 11:44 | Outpatient (BNVA) | payer MEDICARE, MEDICAID, SELFPAY | PROVIDERS: PCP Internal Medicine; Visit Provider Internal Medicine | DX: I10 Essential (primary) hypertension (principal); E11.9 Type 2 diabetes mellitus without complications; G25.81 Restless legs syndrome; M54.30 Sciatica, unspecified side; E55.9 Vitamin D deficiency, unspecified | CPT/HCPCS: 96127; 99212 ==

== ENCOUNTER 2024-12-22 07:41 | Outpatient (REF) | payer MEDICARE, MEDICAID, SELFPAY ==
--- OUTSIDE RECORDS SUMMARY | 2024-12-22 07:43 | XMS_ITS | Clinical Summary ---
Author Organization [facility] Address [address] [place] [phone] Phone Care Team Providers Care Editor Continuity And Script Name Role Phone Darren Darnell MD Primary Care Provider + Social History Tobacco Use Types Packs/Day Years [...] AM EDT [facility]ointment [facility] [address] [phone] Health Maintenance Due Date Last Done Comments Colorectal Cancer Screening: Colonoscopy 1950 DTaP,Tdap,and Td Vaccines (1 - Tdap) 1969 Hepatitis A Vaccines (1 of 2 - Risk 2-dose series) 1969 Pneumococcal Vaccine: 50+ Years (1 of 1 - PCV) 2000 Hepatitis B Vaccines (1 of 3 - Risk 3-dose series) 2010 RSV Immunization Adult Patients (1 - Risk 60-74 years 1-dose series) 2010 Cholesterol Screening (Lipid Panel) 02/17/2022 Falls Risk Assessment 02/17/2022 Hepatitis C Screening 02/17/2022 Medicare Annual Wellness Visit 02/17/2022 Osteoporosis Screening (Bone Density Screening) 02/17/2022 Social Influencers of Health Screening 02/17/2022 Depression Screening 03/17/2024 Hypertension/CHF/CAD Annual BMP Blood Test 06/29/2024 Zoster Vaccines (2 of 2) 07/12/2024 05/17/2024 COVID-19 Vaccine ( - season) 2024 Influenza Vaccine (#1) 2024 Breast Cancer Screening 07/13/2026 07/14/19, 06/24/2023, 06/06/2022, Additional history exists HIB Vaccines [...] for breast cancer from Last 3 Months or Most Recently Relevant to Health Maintenance Results * MG Mammo Digital Screening w Apollo bilat (07/13/2024 2:21 PM EDT) Anatomical Region Laterality Modality Breast Bilateral Mammography 07/13/2024 3:44 PM EDT Impressions 07/13/2024 3:53 PM EDT No evidence of breast malignancy. BI-RADS CATEGORY: 1 - NEGATIVE RECOMMENDATION: Screening bilateral mammogram is recommended in 1 year. Mammo Location: [facility], [address] [place] [address], [phone], . -------- FINAL REPORT -------- Dictated By: Liberty Kong Dictated Date: 07/13/2024 15:44 ET Assigned Physician: Liberty Kong Reviewed and Electronically Signed By: Liberty Kong Signed Date: 07/13/2024 15:53 ET Workstation ID: [id number] Transcribed By: Self Edit Transcribed Date: 07/13/2024 [...] year. Mammo Location: [facility], [address] [place] [address], [phone], . -------- FINAL REPORT -------- Dictated By: Liberty Kong Dictated Date: 07/13/2024 15:44 ET Assigned Physician: Liberty Kong Reviewed and Electronically Signed By: Liberty Kong Signed Date: 07/13/2024 15:53 ET Workstation ID: [id number] Transcribed By: Self Edit Transcribed Date: 07/13/2024 15:44 ET us Self Referral Sppl IMG BI PROCEDURES Final Resul t from Last 3 Months or Most Recently Relevant to Health Maintenance Insurance MEDICARE ADVANTAGE GENERIC Care Teams Editor Continuity And Script Relationship Specialty Start Date End Date Darren Darnell MD [address] [place] [phone] PCP - General Internal Medicine 07/05/24
--- OUTSIDE RECORDS SUMMARY | 2024-12-22 07:43 | XMS_ITS | Encounter Summary ---
Author Organization [employer] Address [address] [place] [address] 7 [place] [address] Care Team Providers Care Rn Hospital Name Role Phone Unavailable Primary Care Provider Unavailabl e Reason for Visit * Reason Onset Date Comments serenity patient 07/16/2024 Encounter Details Date Type Department Care Team ( Contact Info) Description 07/16/2024 Telephone [facility] [address] [place] [address] Anup Forde serenity patient Social History Tobacco [...] Pace patient scheduled only by Karine in [facility]. Explained to patient that I would [...] Care Team (Late Contact Info) Description 02/08/2025 10:15 AM EST Office Visit [facility] [address] [place] [address] Anup Forde documented as of this encounter Visit Diagnoses Not on filedocumented in this encounter
--- OUTSIDE RECORDS SUMMARY | 2024-12-22 07:43 | XMS_ITS | Clinical Summary ---
Author Organization [employer] Address [address] [place] [address] [address] [place] [address] Care Team Providers Care Pilot Fuel Engineer Name Role Phone Unavailable Primary Care Provider Unavailabl e Allergies Active Allergy Reactions Criticality Noted Date Comments Penicillins 03/24/2023 Medications clindamycin (Cleocin) 300 MG capsule TAKE 2 CAPSULES BY MOUTH 30 MINUTES BEFORE DENTAL APPOINTMENT 3 Active fenofibrate (Triglide) 160 MG tablet Take 160 mg by mouth in the morning. 3 Active gabapentin (Neurontin) 600 MG tablet Take 600 mg by mouth 2 times daily. 3 Active losartan (Cozaar) 100 MG tablet Take 100 mg by mouth in the morning. 3 Active metFORMIN (Glucophage) 500 MG tablet Take 1,000 mg by mouth in the morning. 3 Active NIFEdipine CC (Adalat CC) 30 MG 24 hr tablet Take 30 mg by mouth in the morning. 3 Active pantoprazole (ProtoNix) 40 MG EC tablet Take 40 mg by mouth in the morning. 3 Active ROSUVASTATIN CALCIUM PO Take by mouth. 4 Active Active Problems Problem Noted Date Diagnosed Date Ankle arthritis 08/17/2024 Benign hypertension 08/17/2024 Chronic diarrhea 08/17/2024 Class 1 obesity 08/17/2024 Encounter for screening colonoscopy 08/17/2024 Family history of pancreatic cancer 08/17/2024 Hepatic steatosis 08/17/2024 Hypercholesteremia 08/17/2024 Type 2 diabetes mellitus wit hout complication, without long-term current use of insulin 08/17/2024 Leg pain 05/06/2023 Raynaud's phenomenon 05/06/2023 Encounters Date Type Department Care Team Description 10/08/2024 Telephone [facility] [address] [place] [address] Fernanda Falcon DDS from Last 3 Months Social History Tobacco Use Types Packs/Day Years Used Date Smoking Tobacco: Former Cigarettes Passive Smoke Exposure: Never Smokeless Tobacco: Never Tobacco Cessation:Counseling Given: Not Answered Comments Unknown Sex and Gender Information Value Date Recorded Sex Assigned at Female 02/11/2023 1:49 PM EST Legal Sex Female 1:48 PM EST Gender Identity Choose not to disclose 1:49 PM EST Sexual Orientation Don't know 02/11/2023 1: 49 PM EST Last Filed Vital Signs Vital Sign Reading Time Taken Comments Blood Pressure 142/70 08/17/2024 1:24 PM EDT Pulse 85 08/04/2024 1:59 PM EDT Temperature - - Respiratory Rate - - Oxygen Saturation - - Inhaled Oxygen Concentration - - Weight - - Height - - Body Mass Index - - Plan of Treatment Upcoming Encounters Date Type Department Care Team (Late st Contact Info) Description 02/08/2025 10:15 AM EST Office Visit [facility] ADULT DENTAL [address] [place] [address] Anup Forde Health Maintenance Due Date Last Done Comments CT Colonography 1950 Colonoscopy 1950 Colorectal Cancer Screening 1950 Depression Screening 1950 Diabetes: Hemoglobin A1C 1950 FIT DNA/Cologuard 1950 FIT 1950 FOBT 1950 Lipid Panel 1950 SDOH Screening 1950 Sigmoidoscopy 1950 Diabetes: Foot Exam 1960 Eye Exam 1960 Alcohol/Substance Use Screening 1962 Hepatitis C Screening 1968 DTaP/Tdap/Td Vaccines (1 - Tdap) 1969 Diabetes: Urine Protein Screening 1969 Hepatitis A Vaccines (1 of 2 - Risk 2-dose series) 1969 Pneumococcal Vaccine: 50+ Years (1 of 2 - PCV) 1969 Hepatitis B Vaccines (1 of 3 - Risk 3-dose series) 2010 RSV Patients and Patients Aged 60 years or older (1 - Risk 60-74 years 1-dose series) 2010 Zoster Vaccines (2 of 2) 07/12/2024 05/17/2024 COVID-19 Vaccine (1 - 2023-2 5 season) 2024 Influenza Vaccine (#1) 2024 Dental Oral Exam 02/05/2025 08/04/2024, 03/24/2023 Dental Prophylaxis 02/05/2025 08/04/2024, 01/13/2024, 05/02/2023 Dental X-Ray: Bitewings 08/05/2025 08/05/19 25, 03/24/2023 Tobacco Screening 08/31/2025 08/31/2024 Dental X-Ray: Full Mouth 03/25/2026 03/24/2023 Mammogram 07/13/2026 07/13/2024, 07/13/2024 HIB Vaccines Aged Out No longer eligi [...] patient's age to complete this topic Meningococcal Vaccine Aged Out No alison anushka eligible based on patient's age to complete this topic RSV under 20 months Aged Out No longe r eligible based on patient's age to complete this topic Rotavirus Vaccines Aged Out No longer eligible based on patient's age to complete this topic Procedures Procedure Name Priority Date/Time Associated Diagnosis Comments Full PROPHYLAXIS - ADULT Routine 025 2:00 PM EDT BITEWINGS - 4 RADIOGRAPHIC IMAGES Routine 08/04/2024 2:00 PM EDT PERIODIC ORAL EVALUATION - ESTABLISHED PATIENT Routine 08/04/2024 2:00 PM EDT INTRAORAL - COMPLETE SERIES OF RADIOGRAPHIC IMAGES Routine 03/24/2023 3:00 PM EST from Last 3 Months or Most Recently Relevant to Health Maintenance Insurance D[facility] [place] [id number]
--- OUTSIDE RECORDS SUMMARY | 2024-12-22 07:43 | XMS_ITS | Encounter Summary ---
Author Organization [employer] Address [address] [place] [address] 7 [place] [address] Care Team Providers Care Pediatrician Name Role Phone Unavailable Primary Care Provider Unavailabl e Encounter Details Date Type Department Care Team (Late st Contact Info) Description 02/13/2023 Abstract [facility] ADULT DENT[facility] [address] [place] [address] Maurizio [place] DDS [address] [place] [address] Social History Tobacco Use Types Packs/Day Years Used Date Smoking Tobacco: Never Assessed Comments Unknown Sex and Gender Information Value Date Recorded Sex Assigned at Female 02/11/2023 1:49 PM EST Legal Sex Female 1:48 PM EST Gender Identity Choose not to disclose 1:49 PM EST Sexual Orientation Don't know 02/11/2023 1: 49 PM EST documented as of this encounter Plan of Treatment Upcoming Encounters Date Type Department Care Team (Late st Contact Info) Description 02/08/2025 10:15 AM EST Office Visit [facility] ADULT DENT[facility] [address] [place] [address] Anup Forde documented as of this encounter Visit Diagnoses Not on filedocumented in this encounter
--- OUTSIDE RECORDS SUMMARY | 2024-12-22 07:43 | XMS_ITS | Clinical Summary ---
Author Organization [facility] Facility Address [address] [place] [id number] Care Team Providers Care Precast Concrete Ironworker Name Role Phone Beronica Tapia MD Primary Care Provider [phone] Social History Tobacco Use Types Packs/Day Years [...] topic Insurance Medicare Medicaid [place] Medicare Medicaid [place] Care Teams Precast Concrete Ironworker Relationship Specialty Start Date End Date Beronica aTpia MD 1961 [place] [address] PCP - General Internal Medicine 08/01/21
[2024-12-22 11:24] LABS: Alanine Aminotransferase 38 U/L (0-31); Albumin Level 4.5 g/dL (3.5-5.0); Alkaline Phosphatase 75 U/L (39-117); Anion Gap 11 (12-20); Aspartate Amino Transferase 41 U/L (5-31); Blood Urea Nitrogen 17 mg/dL (9-16); Calcium 10.0 mg/dL (8.4-10.2); Carbon Dioxide 30 mmol/L (22-29); Chloride 102 mmol/L (96-108); Cholesterol 180 mg/dL (<200); Estimated Glomerular Filt Rate > 60; HDL Cholesterol 52 mg/dL (>40); Iron 62 mcg/dL (30-160); Percent Iron Saturation 17 % (15-50); Potassium 4.4 mmol/L (3.3-5.1); Sodium 139 mmol/L (135-145); Total Iron Binding Capacity 355 mcg/dL (228-428); Total Protein 7.3 g/dL (6.5-8.0); Triglycerides 178 mg/dL (<150); Unsaturated Iron Binding 293 ug/dL
[2024-12-22 11:36] LABS: Microalbum/Creatinine Ratio Ur 98.5 ug/mg cr (<30)
[2024-12-22 11:49] LABS: Folate 13.1 ng/mL (> or = 4.0); Vitamin B12 > 2000 pg/mL (200-900)
== END 2024-12-22 07:42 | disposition home or self-care (01) ==
LOC: HO.HMGCLDS 07:41
PROVIDERS: PCP Internal Medicine; Visit Provider Internal Medicine
DX: I10 Essential (primary) hypertension (principal); E11.9 Type 2 diabetes mellitus without complications; E55.9 Vitamin D deficiency, unspecified
CPT/HCPCS: 36415; 80053; 80061; 82043; 82306; 82570; 82607; 82746; 83036; 83540

== ENCOUNTER 2024-12-27 10:34 | Outpatient (AMB) | payer MEDICARE, MEDICAID, SELFPAY ==
[2024-12-27 10:37] VITALS: BP 122/68; PULSE 96; RESP 18; TEMP 36.4; O2SAT 99; BMI 28.7
--- NOTE | 2024-12-27 10:37 | A.OFFPC_ITS ---
Vital Signs 12/27/24 10:37 Height 5 ft 4 in Weight 167 lb BMI 28.7 BP 122/68 Blood Pressure Location Lt brachial Position Sitting Respiration 18 Pulse 96 Pulse Source Pulse Oximeter Temp 97.6 F Temp Source Oral Pulse Oximetry (%) 99 Oxygen Delivery Method Room Air Intake Visit Reasons: 3m follow up Intake Note: Pt is here today for 3 months follow up visit. Allergies penicillin G Allergy (Severe, Verified 12/27/24 10:39) SOB throuble breathing penicillin V Allergy (Severe, Verified 12/27/24 10:39) SOB trouble breathing atorvastatin Allergy (Unknown, Verified 12/27/24 10:39) myalgia Penicillins Allergy (Unknown, Verified 12/27/24 10:39) SOB trouble breathing rosuvastatin (Crestor) Allergy (Unknown, Verified 12/27/24 10:39) myalgia Medication List - Last Reconciled 12/27/24 by Beronica Tapia MD ascorbic acid (vitamin C) (Vitamin C) 500 mg PO DAILY blood sugar diagnostic ONE TOUCH ULTRA BLUE TEST STRIPS (new) 100 USE ONCE A DAY TO TEST BLOOD SUGARS. cholecalciferol (vitamin D3) (Vitamin D3) 25 mcg PO DAILY compr.stocking,thigh,reg,large 15-20 mmHg ezetimibe 10 mg PO DAILY fenofibrate 160 mg PO DAILY furosemide 20 mg PO Q OTHER DAY losartan 100 mg PO DAILY metformin 1,000 mg (2 x 500 mg) PO DAILY nifedipine ER 30 mg PO DAILY olopatadine 0.1% 1 drp ophthalmic (eye) BID PRN omeprazole 20 mg PO DAILY PRN ropinirole 0.5 mg PO BEDTIME semaglutide (Ozempic) 0.25 mg (0.368 mL) subcut QWEEK triamterene-hydrochlorothiazid 37.5-25 mg 1 cap PO DAILY Tobacco use date assessed: 12/27/24 Fall risk assessment: No Falls in past year Last assessed Fall Risk: 12/27/24 Dental Screening Dental Screen Date: 09/23/24 HPI 3m follow up HPI Details Pt presents for f/u DM 2, HTN, hyperlipid. Patient reports having intermittent memory lapses, occasionally difficulty to recall names and places. She exercises everyday at [employer] and has a lot of social interaction with her kids, grandchildren and great grand child. Patient denies depression insomnia change in appetite. Her father was diagnosed with dementia in 80's. [facility] Medical History Shoulder pain, bilateral H. pylori infection DJD (degenerative joint disease), cervical Shoulder pain, left Annual physical exam Hip pain, right Foot pain, bilateral Hx of bone density study Osteopenia Type 2 diabetes mellitus Osteoarthritis Hyperlipidemia HTN (hypertension) Lower back pain Surgical History Hx of cataract surgery H/O colonoscopy Family History Father No problems noted. Mother Stroke Social History Household Members: Significant Other Housing: Apartment Do you presently have visiting nurse or other home services: No Alcohol intake: never Patient Tobacco Use Status: Never used Tobacco e-Cigarette/Vaping Use: Never Used service: No Current occupational status: retired Cognitive needs: No Hearing needs: No Vision needs: Yes Questionnaire PHQ-9 Over the last 2 weeks, how often have you been bothered by any of the following problems? 1. Little interest or pleasure in doing things: not at all 2. Feeling down, depressed, or hopeless: not at all 3. Trouble falling or staying asleep, or sleeping too much: not at all 4. Feeling tired or having little energy: several days 5. Poor appetite or overeating: several days 6. Feeling bad about yourself - or that you are a failure or have let yourself or your family down: not at all 7. Trouble concentrating on things, such as reading the newspaper or watching television: several days 8. Moving or speaking so slowly that other people could have noticed. Or the opposite - being so fidgety or restless that you have been moving around a lot more than usual: several days 9. Thoughts that you would be better off or of hurting yourself in some way: several days Total score: 5 Depression Screening Interpretation: Negative Depression Screening Done: Yes Source: Developed by Drs. Jaquan Damon, Gabriela Garduno, Benja Sylvester and colleagues, with an educational julian from [email or web address]. Thrive Questionnaire Date Thrive assessed: 09/23/24 I am a: Patient What is your living situation today?: I have a steady place to live Within the past 12 months, did the food you bought not last and you didn't have the money to get more?: Often true Within the past 12 months, did you worry whether your food would run out before you got money to buy more?: Never true Do you have trouble paying for medicines?: No Do you have trouble getting transportation to medical appointments?: No Do you have trouble paying your heating and electricity bill?: No Do you have trouble taking care of your child, family member or friend?: No Do you have trouble with day-to-day activities such as bathing, preparing meals, shopping, managing finances, etc.?: Yes Are you currently unemployed and looking for a job?: No Are you interested in more education?: No Please select the resources that you would like help with: None Currently or been in a relationship where the following occur: No concerns reported THRIVE Score: 1 AUDIT C Alcohol Use Questionnaire (AUDIT-C) 1. How often do you have a drink containing alcohol?: Never Total Score: 0 SHOSHANA-7 AMB Questionnaire SHOSHANA-7 Date SHOSHANA - 7 assessed: 09/23/24 Feeling nervous, anxious, or on edge: 0 = Not at all Not being able to stop or control worryin = Not at all Worrying too much about different things: 0 = Not at all Trouble relaxin = Not at all Being so restless that it is hard to sit still: 0 = Not at all Becoming easily annoyed or irritable: 0 = Not at all Feeling afraid as if something awful might happen: 0 = Not at all Total SHOSHANA-7 score (0-4 normal; 5-9 mild; 10-14 moderate; 15-21 severe): 0 Source: Developed by Drs. Jaquan Damon, Gabriela Garduno, Benja Sylvester and colleagues, with an educational julian from [email or web address]. Review of Systems Const All systems reviewed & are unremarkable except as noted in HPI and below ENT Reports no additional complaints Card Reports no additional complaints Resp Reports no additional complaints GI Reports no additional complaints Reports no additional complaints Physical exam (Primary Care) Vital Signs: Last Vital Signs Temp 97.6 F 12/27/24 10:37 Pulse 96 12/27/24 10:37 Resp 18 12/27/24 10:37 BP 122/68 12/27/24 10:37 Pulse Ox 99 12/27/24 10:37 Oxygen Delivery Method Room Air 12/27/24 10:37 BMI result Body Mass Index 28.7 Tobacco/Smoking Status: Tobacco use Status Tobacco use date assessed 12/27/24 12/27/24 10:42 Patient Tobacco Use Status Never used Tobacco 12/27/24 10:42 e-Cigarette/Vaping Use Never Used 12/27/24 10:42 PHQ-9: PHQ-9 Score PHQ-9: Total score 5 12/27/24 10:42 Depression Screening Interpretation: Negative Thrive Assessment: Date of Thrive Assessment Date Thrive assessed 09/23/24 12/27/24 10:42 Currently or been in a relationship where the following occur: No concerns reported Const General: no acute distress HENMT Head: Yes normal to inspection Eyes General: appearance normal, both eyes and all related structures Resp Effort & Inspection: normal respiratory effort Auscultation: clear to auscultation bilaterally Cardio Rhythm: regular rhythm Heart sounds: S1 normal heart sound present and S2 normal heart sound present GI Inspection: Yes normal to inspection Palpation (GI): Soft to palpation Percussion: Yes normal to percussion Auscultation: normal bowel sounds Coding Level of Care Code Est Pt Level 4 (98935) Diagnoses HTN (hypertension) I10 Hyperlipidemia E78.5 Type 2 diabetes mellitus E11.9 Memory changes R41.3 Assessment & Plan Assessment & Plan (1) HTN (hypertension): Comment: BP < 130/80 Code(s): I10 - Essential (primary) hypertension Category: Medical Plan: Continue current medications (2) Hyperlipidemia: Code(s): E78.5 - Hyperlipidemia, unspecified Category: Medical Plan: Continue current medications (3) Type 2 diabetes mellitus: Comment: A1C <6.5 Code(s): E11.9 - Type 2 diabetes mellitus without complications Category: Medical Plan: A1c is 6.6, ADA diet regular exercise discussed with the patient increase Ozemp ic 2.5 mg weekly continue metformin and follow-up in 3 months with a fasting labs before (4) Memory changes: Comment: nl TSH, vit B 12 Code(s): R41.3 - Other amnesia Category: Medical Plan: Try donepezil 5 mg daily Orders: Orders Comprehensive [place]. Panel Fast 3 Months E11.9 - Type 2 diabetes mellitus without complications, E78.5 - Hyperlipidemia, unspecified, I10 - Essential (primary) hypertension Hemoglobin A1c 3 Months E11.9 - Type 2 diabetes mellitus without complications, E78.5 - Hyperlipidemia, unspecified, I10 - Essential (primary) hypertension TSH reflex Free T4 3 Months E11.9 - Type 2 diabetes mellitus without comp lications, E78.5 - Hyperlipidemia, unspecified, I10 - Essential (primary) hypertension Microalbumin, Random (w Creat) 3 Months E11.9 - Type 2 diabetes mellitus without complications, E78.5 - Hyperlipidemia, unspecified, I10 - Essential (primary) hypertension Complete Blood Count Auto Diff 3 Months E11.9 - Type 2 diabetes mellitus without complications, E78.5 - Hyperlipidemia, unspecified, I10 - Essential (primary) hypertension Lipid Panel 3 Months E11.9 - Type 2 diabetes mellitus without complications, E78.5 - Hyperlipidemia, unspecified, I10 - Essential (primary) hypertension Medications: New Ozempic (semaglutide) 0.5 mg (0.736 mL) subcut QWEEK 3 mL 4RF NS ketoconazole 2% 1 appl topical DAILY 60 grams 2RF donepezil 5 mg PO BEDTIME 30 tabs 5RF Refilled blood sugar diagnostic ONE TOUCH ULTRA BLUE TEST STRIPS (new) 100 USE ONCE A DAY TO TEST BLOOD SUGARS. 100 ea 3RF E11.9 - Type 2 diabetes mellitus without complications Discontinued semaglutide (Ozempic) Discontinued Reason: Doctor's Order 0.25 mg (0.368 mL) subcut QWEEK 3 mL 3RF
--- OUTSIDE RECORDS SUMMARY | 2024-12-27 10:37 | XMS_ITS | Clinical Summary ---
Author Organization [employer] Address [address] [place] [address] [address] [place] [address] Care Team Providers Care Biomedical Repair Technician Name Role Phone Unavailable Primary Care Provider [...] [facility] [address] [place] [address] Fernanda Falcon DDS from Last 3 Months [...] Description 02/08/2025 10:15 AM EST Office Visit [facility]ULT [facility] [address] [place] [address] Anup Forde Health Maintenance Due Date Last [...] DENTAL - [facility] [phone]
--- OUTSIDE RECORDS SUMMARY | 2024-12-27 10:37 | XMS_ITS | Encounter Summary ---
Author Organization [employer] Address [address] [place] [address] [address] [place] [address] Care Team Providers Care Monorail Helper Name Role Phone Unavailable Primary Care Provider Unavailabl e Reason for Visit * Reason Onset Date Comments serenity patient 07/16/2024 Encounter Details Date Type Department Care Team ( Contact Info) Description 07/16/2024 Telephone [facility] [address] [place] [address] Anup Forde serenity patient Social History Tobacco [...] Pace patient scheduled only by Karine in [facility]. Explained to patient that I [...] Description 02/08/2025 10:15 AM EST Office Visit [facility] ADULT [facility] [address] [place] [address] Anup Forde documented as of this encounter Visit Diagnoses Not on filedocumented in this encounter
--- OUTSIDE RECORDS SUMMARY | 2024-12-27 10:37 | XMS_ITS | Clinical Summary ---
Author Organization [facility] Facility Address [address] [place] [address] Care Team Providers Care Crossing Flagman Name Role Phone Beronica Tapia MD Primary Care Provider [phone] Social History Tobacco Use Types Packs/Day Years [...] topic Insurance Medicare Medicaid [place] Medicare Medicaid [place] Care Teams Crossing Flagman Relationship Specialty Start Date End Date Beronica Tapia MD [address] [place] [address] PCP - General Internal Medicine 08/01/21
--- OUTSIDE RECORDS SUMMARY | 2024-12-27 10:37 | XMS_ITS | Encounter Summary ---
Author Organization [employer] Address [address] [place] [address] 7 [place] [address] Care Team Providers Care Decision Support Analyst Name Role Phone Unavailable Primary Care Provider Unavailabl e Encounter Details Date Type Department Care Team (Late st Contact Info) Description 02/13/2023 Abstract [facility] ADULT DENTAL [address] [place] [address] Maurizio Milan DDS [address] [place] [address] Social History Tobacco Use Types Packs/Day Years [...] 10:15 AM EST Office Visit [facility] ADULT DENTAL [address] [place] [address] Anup Forde documented as of this encounter Visit Diagnoses Not on filedocumented in this encounter
--- OUTSIDE RECORDS SUMMARY | 2024-12-27 10:37 | XMS_ITS | Clinical Summary ---
Author Organization [facility] Address [address] [place] [phone] Phone Care Team Providers Care Glassblower Name Role Phone Darren Darnell MD Primary [...] AM EDT Appointment [facility] [address] [phone] Health Maintenance Due Date Last [...] year. Mammo Location: [facility], [address] [place] [address], [id number], . -------- FINAL REPORT -------- Dictated By: Liberty Kong Dictated Date: 07/13/2024 15:44 ET Assigned Physician: Liberty Kong Reviewed and Electronically Signed By: Liberty Kong Signed Date: 07/13/2024 15:53 ET Workstation ID: [id number] Transcribed By: Self Edit Transcribed Date: 07/13/2024 [...] year. Mammo Location: [facility], [address] [place] [address], [id number], . -------- FINAL REPORT -------- Dictated By: Liberty Kong Dictated Date: 07/13/2024 15:44 ET Assigned Physician: Liberty Kong Reviewed and Electronically Signed By: Liberty Kong Signed Date: 07/13/2024 15:53 ET Workstation ID: [id number] Transcribed By: Self Edit Transcribed Date: 07/13/2024 15:44 ET us Self Referral Sppl IMG BI PROCEDURES Final Resul t from Last 3 Months or Most Recently Relevant to Health Maintenance Insurance MEDICARE ADVANTAGE GENERIC Care Teams Glassblower Relationship Specialty Start Date End Date Darren Darnell MD [address] [place] [phone] PCP - General Internal Medicine 07/05/24
== END 2024-12-27 11:11 | disposition home or self-care (01) ==
LOC: HO.HMCC 10:35
PROVIDERS: PCP Internal Medicine; Visit Provider Internal Medicine
DX: I10 Essential (primary) hypertension (principal); E78.5 Hyperlipidemia, unspecified; E11.9 Type 2 diabetes mellitus without complications; R41.3 Other amnesia

== ENCOUNTER → 2024-12-27 10:34 | Outpatient (BNVA) | payer MEDICARE, MEDICAID, SELFPAY | PROVIDERS: PCP Internal Medicine; Visit Provider Internal Medicine | DX: E11.9 Type 2 diabetes mellitus without complications (principal); I10 Essential (primary) hypertension; E78.5 Hyperlipidemia, unspecified; R41.3 Other amnesia | CPT/HCPCS: 96127; 99212 ==